=== PATIENT | female | born 1940 | race Caucasian/White ===

== ENCOUNTER → 2020-06-29 13:30 | Outpatient (CLI) | payer MEDICARE, SELFPAY ==
--- NOTE | ~2020-06-29 | XR_ITS ---
XR hand RT min 3V DATE: 06/29/2020 14:50 INDICATION: Injury. Pain and swelling. TECHNIQUE: 3 views COMPARISON: None FINDINGS: Polyarticular osteoarthritis, involving the first carpometacarpal and first metacarpophalan geal and multiple interphalangeal joints in particular. There is evidence of a linear fracture of the dorsal aspect of the triquetrum bone. No other fracture or dislocation, periosteal reaction or bone destruction is detected. IMPRESSION: Triquetral fracture. Polyarticular osteoarthritis Reviewed, dictated and finalized at location A. OR DESIGNER
--- NOTE | ~2020-06-29 | XR_ITS ---
XR facial bones min 3V DATE: 06/29/2020 14:50 INDICATION: Injury. Facial pain and swelling. TECHNIQUE: bhavin Barlow, lateral and submental vertical views COMPARISON: None FINDINGS: The frontozygomatic sutures and zygomatic arches appear intact. No facial fracture is evide nt. The paranasal sinuses and mastoid air cells appear normally developed and aerated. The nasal bone s and anterior maxillary spine appear intact. No mandibular fracture or dislocation is detected. IMPRESSION: No facial fracture detected Reviewed, dictated and finalized at location A. ONARY NURSE PRACTITIONER IMPRESSION: No facial fracture detected
--- NOTE | ~2020-06-29 | XR_ITS ---
XR wrist RT min 3V DATE: 06/29/2020 14:50 INDICATION: Injury. Pain and swelling. TECHNIQUE: 4 views COMPARISON: None FINDINGS: Diffuse osteopenia. A mildly dorsally displaced fracture of the dorsal aspect of the triquetrum is noted. No other fracture or dislocation. Prominent osteoarthritic change at the first carpometacarpal joint and to a lesser extent first metac arpophalangeal joint. IMPRESSION: Dorsal triquetral fracture Reviewed, dictated and finalized at location A. DE STEWARD/STEWARDESS IMPRESSION: Dorsal triquetral fracture
== END ==
PROVIDERS: PCP Family Medicine; Visit Provider Family Medicine
DX: S62.111A Displaced fracture of triquetrum [cuneiform] bone, right wrist, initial encounter for closed fracture (principal); M19.041 Primary osteoarthritis, right hand
CPT/HCPCS: 70150; 73110; 73130

== ENCOUNTER 2023-10-15 20:17 | Emergency (ER) | payer MEDICARE, SELFPAY ==
[2023-10-15 20:35] VITALS: BP 140/57; PULSE 91; RESP 15; TEMP 36.3; O2SAT 96
--- NOTE | 2023-10-15 22:10 | ED.SKABFB ---
HPI - Skin/Abscess/Foreign Bdy General Chief complaint: Skin/Abscess/Foreign Body <HORACIO Solares Last Filed: 10/15/23 22:13> Stated complaint: full body rash <HORACIO Solares Last Filed: 10/15/23 22:13> Time Seen by Provider: 10/15/23 21:26 <HORACIO Solares Last Filed: 10/15/23 22:13> History of Present Illness HPI narrative: 83-year-old female presents to emergency department for concerns reports an IV to her face, neck and arms. Patient states rash developed 3-4 days ago after she was raking leaves in her yard. Reports a history of poison saundra and states her symptoms feel the same. States it is very itchy and she has been trying topical hydrocortisone cream and Benadryl without improvement. She denies fever. <HORACIO Solares Last Filed: 10/15/23 22:13> Related Data Home medications: Home Medications Medication Instructions Recorded Confirmed simvastatin 40 mg tablet 40 mg PO DAILY 11/23/22 08/31/23 <HORACIO Solares Last Filed: 10/15/23 22:13> Allergies/Adverse reactions: Allergies Allergy/AdvReac Type Severity Reaction Status Date / Time Sulfa (Sulfonamide Allergy Mild Rash Verified 10/15/23 21:25 Antibiotics) <HORACIO Solares Last Filed: 10/15/23 22:13> Review of Systems Review of Systems: CONSTITUTIONAL: Denies fever, chills, or sweats. EYES: Denies visual changes, redness, or discharge. ENT: Denies rhinorrhea, congestion, sore throat, or otalgia. CARDIOVASCULAR: Denies chest pain, palpitations, or edema. RESPIRATORY: Denies cough or dyspnea. GASTROINTESTINAL: Denies abdominal pain, nausea, vomiting, or diarrhea. GENITOURINARY: Denies dysuria or hematuria. SKIN: See HPI MUSCULOSKELETAL: Denies back pain, joint pain, or myalgia. NEUROLOGIC: Denies headache, numbness, or weakness. PSYCHIATRIC: Denies anxiety or depression. <HORACIO Solares Last Filed: 10/15/23 22:13> [facility] Past Medical History Medical History: Medical History Essential (primary) hypertension High blood pressure Microalbuminuria Paroxysmal atrial fibrillation Type 2 diabetes mellitus with other diabetic kidney complication <Lianne Butcher PA-C - Last Filed: 10/15/23 22:13> Social History Social History: Social History Smoking status: Never smoker Alcohol intake: never Substance use: never Substance use type: does not use Do You Feel Safe in your Home?: Yes Lack of Transportation: No Lack of Food: Never True Current Housing: I Have Housing Concerned About Future Housing: No Difficulty Paying Gas/Electric Bills: No Difficulty Paying for Meds: No Currently Unemployed: YES Education: High School Diploma/GED Difficulty w/ Childcare or Family Care: No Living arrangements: alone Occupation/Education: retired Gender identity (if verbalized by the patient): Female Sexual Orientation (if Verbalized by the Patient): Straight or Heterosexual <Lianne Butcher PA-C - Last Filed: 10/15/23 22:13> Exam Narrative: GENERAL: Well-appearing, well-nourished, and in no acute distress. HEAD: Normocephalic, atraumatic. EYES: PERRLA and EOMI. ENT: Nares clear, no rhinorrhea or epistaxis. Mucous membranes moist. NECK: Supple. CHEST: Clear to auscultation. No respiratory distress. HEART: Regular rate and rhythm. No murmur heard. Normal peripheral pulses. EXTREMITIES: Normal range of motion. No edema. SKIN: Erythematous plaques to the right cheek, right eyelid, right submandibular region and bilateral volar aspect of the forearms. Pruritic. No evidence of secondary infection. No drainage. Negative Nikolsky is. NEURO: No focal deficits. Alert and oriented x3 <Lianne Butcher PA-C - Last Filed: 10/15/23 22:13> Course LABOR TRAINING MANAGER/PA Physician Supervision I agree with
[2023-10-15] MEDS: TRIAMCINOLONE ACET INJ 40 MG/ML VIAL 55 MG IM (22:40)
== END 2023-10-15 22:43 | disposition home or self-care (01) ==
PROVIDERS: Emergency Provider Physician Assistant; PCP Family Medicine
DX: L23.7 Allergic contact dermatitis due to plants, except food (principal); I10 Essential (primary) hypertension; I48.0 Paroxysmal atrial fibrillation; E11.29 Type 2 diabetes mellitus with other diabetic kidney complication; Z79.84 Long term (current) use of oral hypoglycemic drugs
CPT/HCPCS: 96372; 99283; J3301

== ENCOUNTER 2024-11-26 14:30 | Outpatient (RCR) | payer MEDICARE, SELFPAY | END 2025-01-19 11:01 | disposition home or self-care (01) | LOC: ANHDMC 14:30 | PROVIDERS: PCP Family Medicine; Visit Provider Family Medicine | DX: E11.29 Type 2 diabetes mellitus with other diabetic kidney complication (principal); E11.65 Type 2 diabetes mellitus with hyperglycemia; Z71.89 Other specified counseling | CPT/HCPCS: G0108; G0109 ==

== ENCOUNTER 2025-02-01 22:12 | Observation (INO) | payer MEDICARE, SELFPAY ==
--- NOTE | ~2025-02-01 | CT_ITS ---
Clinical Indication: Abnormal chest x-ray, dizziness CT Scan of the Chest with Contrast: Technique: Contiguous sections were acquired throughout the chest after intravenous administration of 75 cc of Omnipaque 350. Dose reduction technique was used on this scan by utilizing automated exposu re control and iterative reconstruction technique. The dose-length product (DLP) was 132.64 mGy-cm. Findings: There is no evidence of any significant mediastinal, hilar or axillary lymphadenopathy. There is no f illing defect in the pulmonary arterial tree to suggest pulmonary embolus. There is no evidence of ao rtic dissection or aneurysm. There is no evidence of pleural or pericardial effusion. There is a 2.7 x 2.3 cm nodule in the anteromedial right upper lobe with some central calcifications. There is an 8 mm vague groundglass opacity peripheral in the left upper lobe (axial image 52). Images through the upper abdomen reveal no abnormalities. Impression: 2.7 x 2.3 cm right upper lobe pulmonary nodule with central calcifications, suggestive of hamartoma. Other etiologies are not definitively excluded. Follow-up exam in 3 months recommended to reassess. P ET/CT or tissue sampling could also be considered as indicated. 8 mm vague groundglass opacity left upper lobe. Annual follow-up exam advised. Reviewed, dictated and finalized at location M. Impression: 2.7 x 2.3 cm right upper lobe pulmonary nodule with central calcifications, sug gestive of hamartoma. Other etiologies are not definitively excluded. Follow-up exam in 3 months recommended to reassess. PET/CT or tissue sampling could also be considered as indicated. 8 mm vague groundglass opacity left upper lobe. Annual follow-up exam advised.
--- NOTE | ~2025-02-01 | MR_ITS ---
EXAMINATION: MR brain/brain stem wo/w con DATE: 02/02/2025 13:35 INDICATION: Dizziness TECHNIQUE: Magnetic resonance imaging (MRI) of the brain and brainstem was performed without and with 15 mL Multihance intravenous contrast. Sequences included sagittal and axial T1-weighted SE, axial d iffusion-weighted FS SE, axial 3D SWAN, axial T2-weighted FLAIR, and axial T2-weighted FSE. Postcontr ast axial and coronal T1-weighted FSE was obtained. Apparent diffusion coefficient (ADC) maps were cr eated. COMPARISON: Head CT dated 02/02/2025 FINDINGS: There are no areas of restricted diffusion to suggest acute infarction. No intracranial hemorrhage or abnormal intracranial mass lesion. There are scattered areas of nonspecific increased T2-weighted si gnal intensity in the cerebral white matter, predominantly involving the deep and periventricular whi te matter. Caput medusa pattern of enhancement and low signal intensity susceptibility weighted artif act consistent with developmental venous anomaly at the right cerebellar hemispheres draining to the fourth ventricle. There are no intraparenchymal signal abnormalities seen on the other pulse sequence s. The ventricles are symmetric and normal in size. There are no abnormal extra-axial fluid collectio ns. Flow voids are seen in the cerebral arteries on the T2-weighted sequences consistent with their e xpected patency. Mild mucosal thickening at the bilateral ethmoid sinuses. Visualized orbits and soft tissues are unremarkable. There are no other areas of abnormal enhancement on the post contrast imag es. IMPRESSION: 1. No acute intracranial process. 2. Mild scattered mesenteric white matter T2 hyperintensity which within normal limits for age and co nsistent with chronic small vessel ischemic disease. 3. 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 Reviewed, dictated and finalized at location A. IMPRESSION: 1. No acute intracranial process. 2. Mild scattered mesenteric white matter T2 hyperintensity which within normal limits for age and consistent with chronic small vessel ischemic disease. 3. 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
--- NOTE | ~2025-02-01 | XR_ITS ---
XR chest 1V portable 02/02/2025 01:13 Indication: Stroke workup Procedure: AP portable chest Comparison: No prior studies for comparison. Findings: Heart size normal. There are bilateral interstitial infiltrates of the upper lobes. No pleu ral effusion or pneumothorax. Heart size normal. There is a right paramediastinal mass, suspicious fo r echogenic carcinoma. Correlation with CT chest recommended. Impression: 1: Bilateral interstitial infiltrates of the upper lobes, suspicious for edema versus atypical pneumo chelsea. 2: Right paramediastinal mass, suspicious for malignancy. Correlation with CT chest with contrast re commended. Reviewed, dictated and finalized at location A. Impression: 1: Bilateral interstitial infiltrates of the upper lobes, suspicious for edema versus atypical pneumonia. 2: Right paramediastinal mass, suspicious for malignancy. Correlation with CT chest with contrast recommended.
--- NOTE | ~2025-02-01 | CT_ITS ---
CT ANGIOGRAM NECK AND HEAD History: Vertigo. Technique: Axial noncontrast imaging of the brain was performed. Serial spiral axial images through t he head and neck were then obtained during arterial phase IV injection of 100 cc of Omnipaque 350. 3- D postprocessing and MIP images were then reconstructed on the remote workstation. Dose reduction carter hnique was used on this scan by utilizing automated exposure control and iterative reconstruction carter hnique. The dose-length product (DLP) was 1591.92 mGy-cm. CTA neck findings: Bilateral vertebral arteries are patent. Bilateral common carotid, internal carot id, and external carotid arteries are patent. There is 40% stenosis at the proximal right internal ca rotid artery related to calcified plaque. No significant stenosis of the left internal carotid artery despite calcified plaques present. The proximal right internal carotid artery demonstrates 40% steno sis relative to the normal distal artery lumen diameter. The proximal left internal carotid artery de monstrates 0% stenosis relative to the normal distal artery lumen diameter. CTA head findings: Distal vertebral arteries, basilar artery, and posterior cerebral arteries are pat ent. Distal internal carotid arteries, middle cerebral arteries, and anterior cerebral arteries are p atent. No significant stenosis. No large vessel occlusion. No aneurysm evident. Axial noncontrast images of brain demonstrates no evidence for acute infarct, intracranial hemorrhage , or mass lesion. No mass effect or midline shift. Tierney-white differentiation intact. Ventricles and subarachnoid spaces are minimally prominent. Paranasal sinuses and mastoid air cells are clear. Lin rium intact. Impression: 40% stenosis at the proximal right internal carotid artery. Reviewed, dictated and finalized at location . Impression: 40% stenosis at the proximal right internal carotid artery.
--- NOTE | 2025-02-01 22:17 | ECG_ITS ---
Test Date: 2025-02-01 22:20:17 Measurements Intervals Irwin Rate: 76 P: 0 IA: 0 QRS: -60 QRSD: 98 T: 14 QT: 372 QTc: 418 Interpretive Statements ATRIAL FIBRILLATION LEFT AXIS DEVIATION [QRS AXIS < -30] INCOMPLETE RIGHT BUNDLE BRANCH BLOCK CANNOT R/O SEPTAL INFARCT, AGE INDETERMINATE INFERIOR INFARCT, AGE INDETERMINATE ABNORMAL ECG No previous ECG available for comparison Electronically Signed On 02-02-2025 06:24:36 CDT by Jose Mitchell D.O.
[2025-02-01 22:18] VITALS: PULSE 76; RESP 11; TEMP 36.9; O2SAT 100
[2025-02-01 22:38] LABS: Hematocrit 46.0 % (37.0-47.0); Hemoglobin 15.6 g/dL (12.0-15.0); Immature Granulocyte Percent A 0.3 % (0-0.5); Lymphocytes Absolute Auto 1.06 K/mm3 (0.9-3.2); Mean Corpuscular HGB Conc 33.9 g/dl (32-36); Mean Corpuscular Hemoglobin 31.3 pg (26-34); Mean Corpuscular Volume 92.2 fl (80-100); Nucleated Red Blood Cells Absolute Auto 0.000 K/mm3 (0.0-0.012); Nucleated Red Blood Cells Perc 0.0 % (0.0-0.2); Platelet Count Result 155 k/mm3 (150-375); Red Blood Count 4.99 M/mm3 (4.2-5.4); White Blood Count 7.4 K/mm3 (4.5-10.0)
[2025-02-01 22:45] VITALS: BP 176/92
[2025-02-01 22:52] VITALS: BP 182/103; PULSE 79
[2025-02-01 22:55] VITALS: BP 191/97
[2025-02-01 23:28] LABS: Add Urine Microscopic? NO; Appearance Urine Clear (Clear); Glucose Urine UA 3+ mg/dL (Negative); Leukocyte Esterase Ur Negative LEU/UL (Negative); Nitrate Urine Negative (Negative); Specific Grav Ur 1.019 (1.001-1.035)
--- NOTE | 2025-02-01 23:30 | PC.NURSE ---
Assumed care of patient. Pt here with dizziness that started this evening shortly after she returned home from dinner. States she was out at a [place] watching boats all day, felt totally normal, did a lot of walking. Then went to a [employer] restaurant for dinner. Reports she is probably dehydrated because she wasn't drinking any water all day. Pt states the dizziness is worse when she moves around or turns her head. Describes as spinning sensation that makes her feel off balanced. Pt A&Ox4 with clear speech, MAEW, equal strength bilaterally. Pt denies any specific visual changes. Denies any headache. Waiting lab results. Family at bedside, call light in reach.
[2025-02-01 23:51] VITALS: PULSE 82; RESP 12; O2SAT 95
--- OUTSIDE RECORDS SUMMARY | 2025-02-01 23:54 | XMS_ITS | Patient Health Record ---
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
--- OUTSIDE RECORDS SUMMARY | 2025-02-01 23:54 | XMS_ITS | Patient Health Record ---
Author Organization [facility] Address [address] [place], [place] [address] Care Team Providers Care Board Worker Name Role Phone ASHLEE MARTINEZ Unavailable [phone] Ashlee Tucker Unavailable Unavailable ASHLEE TIRADO Unavailable [phone] Allergies Allergen (clinical drug ingredient) Drug/Non Drug Allergy documented on EMR Reaction Allergy Type Onset Date Status Product containing sulfonamide (product) (uncoded) Unknown Allergy 12/03/2020 active Latex Latex Unknown Allergy 12/03/2020 active Reason For Referral No Information Medications Medication SIG (Take, Route, Frequency, Duration) Notes Start Date End Date Status Clotrimazole-Betamet hasone 1-0.05 % 1 application Externally Twice a day one 30g tube or similar 01/07/2024 Active Clotrimazole-Betamet hasone 1-0.05 % 1 application Externally Twice a day; Duration: 30 days one tube, 30g or similar Active Vital Signs Height-cm 157.48 cm 10/23/2024 Weight-kg 57.61 kg 10/23/2024 Height 62.00 in 10/23/2024 Weight 127 lbs 10/23/2024 BMI 23.23 kg/m2 10/23/2024 Encounters Encounter Location Date Provider Diagnosis [facility] [address] [place], [place] [id number] 10/16/2024 ASHLEE TIRADO Contusion of right great toe without damage to nail, initial encounter S90.111A and Pain in right toe(s) M79.674 [facility] [address] [place], [place] [id number] 10/23/2024 ASHLEE TIRADO Pain in right toe(s) M79.674 and Contusion of right great toe without damage to nail, subsequent encounter S90.111D Assessments Encounter Date Diagnosis (ICD Code) Assessment Notes Treatment Notes Treatment Clinical Notes Section Notes 10/16/2024 Pain in right toe(s) (ICD-10 - M79.674) 10/16/2024 Contusion of right great toe without damage to nail, initial encounter (ICD-10 - S90.111A) 10/23/2024 Pain in right toe(s) (ICD-10 - M79.674) 10/23/2024 Contusion of right great toe without damage to nail, subsequent encounter (ICD-10 - S90.111D) 10/23/2024 Other I advised the patient that no further treatment is necessary at this time. If the condition should worsen they should call the office. Plan Of Treatment No Information Insurance Providers Payer Name Payer Address Payer Phone Subscriber Number Group Number Insured Name Patient Relationship to Insured Coverage Start Date Coverage End Date [facility] [address] [address] [place] [id number] LEWIS SAMUELS Self - patient is the insured
--- OUTSIDE RECORDS SUMMARY | 2025-02-01 23:54 | XMS_ITS | Clinical Summary ---
Author Organization [facility] Address [address] [place] [address] Care Team Providers Care Pail Bailer Name Role Phone Unavailable Primary Care Provider Unavailabl e Social History Tobacco Use Types Packs/Day Years Used Date Smoking Tobacco: Never Assessed Comments Unknown Sex and Gender Information Value Date Recorded Sex Assigned at Not on file Legal Sex Female 6:35 PM CDT Gender Identity Not on file Sexual Orientation Not on file Plan of Treatment Health Maintenance Due Date Last Done Comments DTaP, Tdap and Td Vaccines ( 1 - Tdap) 1959 Pneumococcal Vaccine: 50+ Ye ars (1 of 1 - PCV) 1990 Zoster Vaccines (1 of 2) 1990 Dexa Scan (General) 2005 RSV Immunization or 60+ Years (1 - 1-dose 75+ series) 2015 COVID-19 Vaccine (2023-2 5 season) 2024 Meningococcal B Vaccine Aged Out No l onger eligible based on patient's age to complete this topic Meningococcal Vaccine Aged Out No bre an eligible based on patient's age to complete this topic RSV Immunizations Under 20 Months Aged Out No longer eligible based on patient's age to complete this topic
[2025-02-02] VITALS (44 sets, daily range): BP systolic 109–175; BP diastolic 62–94; PULSE 68–105; RESP 12–20; TEMP 36.2–36.6; O2SAT 91–100; BMI 20.5
--- NOTE | 2025-02-02 00:14 | ED_ITS ---
HPI - Dizziness General Chief Complaint: Dizziness Stated Complaint: DIZZY/NAUSEATED Time Seen by Provider: 02/01/25 23:46 Source: patient and family Limitations: no limitations History of Present Illness HPI Narrative: Patient presents with report dizziness of 4 hours duration. It is initially unclear as it seems that it had been acute onset but then she states that she had not been feeling well for a little bit leading up to this. Earlier today she was outside today at the [place] with dogs and feeling fine. She thinks perhaps she did not drink enough fluids although she did have dinner, last oral intake. When she started to feel dizzy and nauseated at home she laid on the floor and called her son who then called EMS. She states she has a history of motion sickness. Denies any history of TIA or CVA. Has a history of hypertension for which she is on lisinopril but she did not take this today. When asked to describe her dizziness she denies any rotational movement or spinning or sensation of falling. Believes that symptoms may have been preceded by head position change but denies any position change of her body preceding and although this is possible. She reports feeling lightheaded and that her gait might of been abnormal. Denies any blurred vision or diplopia. She denies any slurred speech although her son states that he thought she had some. She does not know she had issues with her equilibrium. She does not know if this has ever happened before. Unclear if any unilateral symptoms although she cannot describe any. Denies any ear pain, tinnitus, or hearing changes. Reports that she has a history of diabetes mellitus and is on Farxiga. Also reports being on nystalamir (?). She had previously been on statin but this was discontinued. She reports that she has had a colonoscopy and is due for 1 but has not scheduled it. Her primary care physician is Dr. Tucker. History of atrial fibrillation. Blood glucose was 146 for EMS heart rate was 86. Patient initially denies being on any anticoagulation but then which she lists her medications she does state she is on Eliquis and also takes 81 mg aspirin. Blood pressure for EMS was 211/102. Related Data Allergies Allergy/AdvReac Type Severity Reaction Status Date / Time Sulfa (Sulfonamide Allergy Mild Rash Verified 12/09/24 10:35 Antibiotics) [facility] [place] Past Medical History Medical History (Updated 02/02/25 @ 11:47 by Aminah Garcia MD) Hyperlipidemia Vertigo Chronic anticoagulation Paroxysmal atrial fibrillation Essential (primary) hypertension Microalbuminuria Type 2 diabetes mellitus with other diabetic kidney complication High blood pressure Social History Social History Smoking status: Never smoker Alcohol intake: never Substance use: never Substance use type: does not use Do You Feel Safe in your Home?: Yes Lack of Transportation: No Lack of Food: Never True Current Housing: I Have Housing Concerned About Future Housing: No Difficulty Paying Gas/Electric Bills: No Difficulty Paying for Meds: No Currently Unemployed: No Education: High School Diploma/GED Difficulty w/ Childcare or Family Care: No Living arrangements: alone Occupation/Education: retired Gender identity (if verbalized by the patient): Female Sexual Orientation (if Verbalized by the Patient): Straight or Heterosexual Spiritual care concerns: No Exam 2 Narrative: GENERAL: Well-appearing, well-nourished, and in no acute distress. HEAD: Normocephalic, atraumatic. EYES: Non injected, non icteric. No nystagmus.. ENT: Nares clear, no rhinorrhea or epistaxis. Gross auditory acuity intact. Bilateral tympanic membranes are easily visualized without significant cerumen. No bulging effusion, erythema, vesicles. NECK: Supple. No meningismus. CHEST: Speaking in full sentences. No respiratory distress. HEART: IRRegularly irregular rate and rhythm. . ABDOMEN: Soft, nondistended. No rigidity or guarding. Not peritoneal EXTREMITIES: Normal range of motion. No lower extremity edema. SKIN: Warm, dry, no rash. NEURO: No focal deficits. Alert and oriented. Answering questions. Following commands. Normal speech without aphasia or dysarthria. No ataxia on [id number]. No facial asymmetry/gaze palsy. PSYCH: Congruent mood and affect. Loquacious. Course Vital Signs Vital signs: Vital Signs Temperature 98.5 F 02/01/25 22:18 Pulse Rate 76 02/01/25 22:18 Respiratory Rate 11 L 02/01/25 22:18 Pulse Oximetry 100 02/01/25 22:18 Oxygen Delivery Room Air 02/01/25 22:18 Temperature 97.1 F L 02/02/25 13:56 Pulse Rate 81 02/02/25 16:00 Respiratory Rate 18 02/02/25 13:56 Blood Pressure 162/79 H 02/02/25 13:56 Pulse Oximetry 94 02/02/25 14:56 Oxygen Delivery Room Air 02/02/25 14:56 MDM - Dizziness MDM Narrative Medical decision making narrative: Patient presents with report of dizziness and nausea 4 hours duration. Exact details and symptomatology her difficult for patient to describe an elaborate on. Unclear if any preceding head position changes or body position changes. She describes a sense of lightheadedness but other than that does not have sensation falling or rotational movement/spinning. In the emergency department she is afebrile with vital signs notable for mild bradypnea but she is also hypertensive. NIHSS Level Of consciousness: 0 Month and age:0 Follows commands:0 Gaze palsy:0 Visual sims: not assessed Facial palsy:0 Left arm motor drift:0 Right arm motor drift:0 Left leg motor drift:0 Right leg motor drift:0 Limb ataxia:0 Sensation:0 Aphasia:0 Dysarthria:0 Extinction: not assessed Total: 0 Mildly elevated hemoglobin. No prior for comparison. Suspect possible degree of hemoconcentration. Hyperglycemia without an anion gap or acidosis. Although symptoms do not sound distinctly vertiginous considered the following differential: Central causes: infection ( encephalitis, meningitis, cerebritis); vertebrobasilar arterial insufficiency, subclavian steal syndrome, cerebellar or brainstem hemorrhage or infarction, vertebrobasilar migraine, trauma ( temporal bone fracture, post concussive syndrome); tumor (brainstem or cerebellum); MS; temporal lobe epilepsy Peripheral causes: Foreign body, cerumen impaction, acute otitis media, labyrinthitis, benign paroxysmal positional vertigo, Meniere's disease, vestibular neuronitis, perilymphatic fistula, trauma, motion sickness, acoustic neuroma, ototoxic medications Meclizine given as first line agent. Mild hypokalemia. Oral repletion ordered. Lipase mildly elevated but not to a degree to suggest pancreatitis and patient is otherwise not complaining abdominal pain that would suggest pancreatitis. Urinalysis with glucosuria but not evidence of infection. Orthostatic blood pressures rise, not fall with position changes. Still dizzy and nauseated; Valium ordered as second line agent. Troponin normal. Patient is reassessed at approximately 2:30 a.m.. She is sleeping, resting comfortably, protecting her airway. Still pending CT results. Family updated at bedside. Patient had been reassessed after CT imaging resulted. The lights were turned on in the room and I did try awaken patient. She arouses but remains quite somnolent; when asked how her dizziness is, she states, better, but unclear, keeps eyes closed the entire time. After some time, RN did attempt to assess gait. She did ok although was a little unsteady. Upon return to bed though, she became very dizzy again. Small dose Promethazine ordered to suppress vestibular end-organ receptors and inhibit activation of vagal response. On reassessment she states that her dizziness is improved although not completely resolved. Given this will admit for further workup. Based on the chest x-ray findings, CT chest also ordered. She reports having a very mild headache. For this reason small dose of headache cocktail is ordered as well. Patient will require admission for further workup and management, recommending she received an MRI for further evaluation. She is informed of this at bedside. Discussed with on-call hospitalist who accepts admission. Based on CXR interpretation by radiology, I did also order chest CT for further investigation. Differential Diagnosis Differential diagnosis: Likely adverse reaction to drug, benign paroxysmal positional vertigo, orthostatic hypotension, vertebral basilar insufficiency, cerebrovascular accident, acute vestibular neuronitis and transient cerebral ischemia Lab Data Attestation: I reviewed the patient's lab results. 02/01/25 22:31 02/01/25 23:48 Labs: Lab Results 02/01/25 02/01/25 02/01/25 Range/Units 22:31 23:11 23:48 WBC 7.4 (4.5-10.0) K/mm3 RBC 4.99 (4.2-5.4) M/mm3 Hgb 15.6 H (12.0-15.0) g/dL Hct 46.0 (37.0-47.0) % MCV 92.2 (80-100) fl MCH 31.3 (26-34) pg MCHC 33.9 (32-36) g/dl RDW 12.3 (11.5-14.5) % Plt Count 155 (150-375) k/mm3 MPV 11.5 H (7.4-10.4) fl Immature Gran % (Auto) 0.3 (0-0.5) % Neut % (Auto) 77.3 H (45.5-73.1) % Lymph % (Auto) 14.4 L (18.3-44.2) % [place] % (Auto) 5.8 (2.6-8.5) % Eos % (Auto) 1.5 (0-4.4) % Baso % (Auto) 0.7 (0.2-1.2) % Lymph # (Auto) 1.06 (0.9-3.2) K/mm3 [place] # (Auto) 0.4 (0.1-0.6) K/mm3 Eos # (Auto) 0.1 (0-0.3) K/mm3 Baso # (Auto) 0.1 (0.0-0.1) K/mm3 Abs Immat Gran (auto) 0.02 (0.00-0.031) K/mm3 Absolute Neuts (auto) 5.7 (1.3-6.7) K/mm3 Absolute Nucleated RBC 0.000 (0.0-0.012) K/mm3 Nucleated RBC % 0.0 (0.0-0.2) % Sodium 134 L (137-145) mmol/L Potassium 3.3 L (3.4-5.0) mmol/L Chloride 96 L (98-107) mmol/L Carbon Dioxide 31 H (22-30) mmol/L Anion Gap 7 (4-12) mmol/L BUN 23 H (7-17) mg/dL Creatinine 0.90 (0.7-1.0) mg/dL Estim Creat Clear Calc Not Reportable Estimated GFR 60 (59 - ) Glucose 193 H (65-110) mg/dL Calcium 10.0 (8.4-10.2) mg/dL Total Bilirubin 0.7 (0.2-1.3) mg/dL AST 35 (14-36) U/L ALT 30 (6-35) U/L Alkaline Phosphatase 66 (38-126) U/L Troponin I < 0.012 (0.000-0.034) ng/mL Total Protein 7.1 (6.3-8.2) g/dL Albumin 4.5 (3.5-5.1) g/dL Lipase 587 H (23-300) U/L Urine Color Yellow (Yellow) Urine Appearance Clear (Clear) Urine pH 7.0 (5.0-9.0) Ur Specific [place] 1.019 (1.001-1.035) Urine Protein Negative (Negative) mg/dL Urine Glucose (UA) 3+ H (Negative) mg/dL Urine Ketones Trace H (Negative) mg/dL Ur Blood (Man) Negative (Negative) Urine Nitrate Negative (Negative) Urine Bilirubin Negative (Negative) Urine Urobilinogen 0.2 (<2.0) mg/dL Leukocyte Esterase Rfl Negative (Negative) DIGNA/UL Imaging Data Attestation: I personally reviewed and interpreted this imaging study as follows: My impression: No acute intrathoracic process on my independent interpretation chest x-ray although the haziness that seems to appear somewhat uniformly is absent in the right lower lobe, significance unclear Radiologist's impression: CT Head Stat Rad: No evidence of acute intracranial pathology. No comparisons CTA head stat Rad: Negative CT angiogram of the head. The dural venous sinuses are patent. No comparisons. No incidental findings CTA neck stat rad: There is a 70% stenosis of the proximal right ICA. No comparisons. Incidental findings: Tiny rim calcified right thyroid nodule. Tiny left thyroid nodules. Impression: 1: Bilateral interstitial infiltrates of the upper lobes, suspicious for edema versus atypical pneumonia. 2: Right paramediastinal mass, suspicious for malignancy. Correlation with CT chest with contrast recommended. Impression: 40% stenosis at the proximal right internal carotid artery. Impression: 2.7 x 2.3 cm right upper lobe pulmonary nodule with central calcifications, suggestive of hamartoma. Other etiologies are not definitively excluded. Follow- up exam in 3 months recommended to reassess. PET/CT or tissue sampling could also be considered as indicated. 8 mm vague groundglass opacity left upper lobe. Annual follow-up exam advised. ECG Data EKG #1: Attestation: I personally reviewed and interpreted this ECG as follows: ECG completion date: 02/01/25 ECG completion time: 22:20 Interpretation: Rate controlled atrial fibrillation at 76 beats per minute. QRS 98. QT/QTC 372/418. Left axis deviation (QRS is positive with dominant R wave in Lead I; QRS is negative with dominant S wave in leads II, III, and aVF). Incomplete RBBB given QRS less [id number]; RSR' M-shaped pattern in V1-V3; wide, slurred S wave in lateral leads (I, aVL, less so in V5-6) Discharge Plan Discharge Clinical Impression: Dizziness, Hyperglycemia due to diabetes mellitus, Hypokalemia, Glucosuria, Thyroid nodule, Rate controlled atrial fibrillation, Right upper lobe pulmonary nodule, Ground glass opacity present on imaging of lung Patient Disposition: Still a Patient Condition: Stable Time of Disposition: 06:47
[2025-02-02 00:17] LABS: Alanine Aminotransferase 30 U/L (6-35); Albumin Level 4.5 g/dL (3.5-5.1); Alkaline Phosphatase 66 U/L (38-126); Anion Gap 7 mmol/L (4-12); Aspartate Amino Transferase 35 U/L (14-36); Bilirubin,Total 0.7 mg/dL (0.2-1.3); Blood Urea Nitrogen 23 mg/dL (7-17); Calcium 10.0 mg/dL (8.4-10.2); Carbon Dioxide 31 mmol/L (22-30); Chloride 96 mmol/L (98-107); Estimated Glomerular Filt Rate 60; Glucose 193 mg/dL (65-110); Lipase 587 U/L (23-300); Potassium 3.3 mmol/L (3.4-5.0); Sodium 134 mmol/L (137-145); Total Protein 7.1 g/dL (6.3-8.2)
[2025-02-02] MEDS: MECLIZINE HCL 25 MG TABLET PO (00:58)
[2025-02-02] MEDS: ONDANSETRON INJ 4 MG/2 ML VIAL IV PUSH (01:23)
[2025-02-02 01:41] LABS: Troponin I < 0.012 ng/mL (0.000-0.034)
[2025-02-02] MEDS: diazePAM INJ (*CRX) 10 MG/2 ML SYRINGE 2.5 MG IV PUSH (01:57)
--- NOTE | 2025-02-02 05:09 | PC.NURSE ---
Pt ambulated to with RN assistance x 1. Pt stated that she still felt woozy and pt had multiple episodes where she stumbled to the side. Pt reports that she is feeling much better but not her normal. When pt returned to her room and got back on the stretcher, pt stated that movement worsened the dizziness again. Pt denies any nausea, reports her head feels funny. MD Burden updated.
[2025-02-02] MEDS: PROMETHAZINE HCL 25 MG/ML AMPUL 6.25 MG IV PUSH (06:00)
[2025-02-02] MEDS: SODIUM CHLORIDE 0.9% IV 50 ML 200 ML (06:00)
[2025-02-02] MEDS: POTASSIUM BICARBONATE 25 MEQ TABEF PO (06:01)
[2025-02-02] MEDS: SODIUM CHLORIDE 0.9% IV 1,000 ML 999 ML IV CONT (06:41)
[2025-02-02] MEDS: PROCHLORPERAZINE EDISYLATE 10 MG/2 ML VIAL 2.5 MG IV PUSH (06:42)
[2025-02-02] MEDS: KETOROLAC 15 MG/ML VIAL (*BKC) IV PUSH (06:42)
--- NOTE | 2025-02-02 08:00 | ADMGEN ---
This patient, Eden Mccray, was admitted to [facility] Surg Room 321-02. Patient/family oriented to hospital policies and general routines including ID bracelet, bed and alarms, visiting hours, pain management, procedures, bathroom and other care routines, personal items, smoking policy, room service/diet, and visiting hours. Information on how to activate the Rapid Response Team has been discussed. Patient/Family are encouraged to report perceived risks to care and to ask questions if they do not understand what they are told or what they should do.
--- NOTE | 2025-02-02 11:37 | P.CONNEU_ITS ---
Assessment and Plan Assessment and plan (1) Vertigo: Code(s): R42 - Dizziness and giddiness Status: Acute Assessment and Plan: The patient's symptoms have improved. They were brought on by movement of the head in relation to the body suggestive of benign paroxysmal vertigo however differential diagnosis would include possibility of brainstem stroke particularly history of diabetes mellitus. She also has history of atrial fibrillation and is on anticoagulation. MRI of the brain is recommended and will be followed up with the results. Clinically I did not find any significant focal deficit at this time. I noted that in August her LDL was high at 150.. We should repeat her lipid profile. (2) Essential (primary) hypertension: Code(s): I10 - Essential (primary) hypertension Status: Acute (3) Paroxysmal atrial fibrillation: Code(s): I48.0 - Paroxysmal atrial fibrillation Status: Acute Assessment and Plan: The patient is on chronic anticoagulation with Eliquis. (4) Type 2 diabetes mellitus with other diabetic kidney complication: Code(s): E11.29 - Type 2 diabetes mellitus with other diabetic kidney complication Status: Acute (5) Hyperlipidemia: Code(s): E78.5 - Hyperlipidemia, unspecified Status: Acute Plan The patient is feeling much better now. I shall follow up the results of her investigations. She told me she has been able to go to the bathroom. Family is very supportive her son was here at the time of the evaluation. Consult date: 02/02/25 HPI: Eden Mccray is a 84 year old female with history of diabetes mellitus and atrial fibrillation developed dizziness or sense of rotation around her head around 6:00 p.m. yesterday. She had a normal relaxing day all day. Patient's son was present at the time of the evaluation. The symptoms were severe and she also felt nauseous and had some headache. she describes that movement of the head was Trigger to her symptoms of dizziness. She never had symptoms such as this in the past. She came to the emergency room were she was evaluated. CT scan of brain and CT angiogram of the head and neck were performed which did not show any significant abnormalities although there was a 40% narrowing of the right internal carotid artery. Last LDL on September 29, 2024 was 150. Her lipase was found to be high at 587. She did not have any other symptoms particularly no diplopia or difficulty speech or swallowing or chewing weakness in upper lower limbs. Symptoms lasted for 5-6 hours and then she has improved. She is living by herself and is fairly active and does her own backyard. Review of Systems 2 Review of Systems: All systems reviewed & are unremarkable except as noted in HPI and below PMFSH Past Medical History Medical History (Updated 02/02/25 @ 11:47 by Aminah Garcia MD) Hyperlipidemia Vertigo Chronic anticoagulation Paroxysmal atrial fibrillation Essential (primary) hypertension Microalbuminuria Type 2 diabetes mellitus with other diabetic kidney complication High blood pressure Social History Social History Smoking status: Never smoker Alcohol intake: never Substance use: never Substance use type: does not use Do You Feel Safe in your Home?: Yes Lack of Transportation: No Lack of Food: Never True Current Housing: I Have Housing Concerned About Future Housing: No Difficulty Paying Gas/Electric Bills: No Difficulty Paying for Meds: No Currently Unemployed: No Education: High School Diploma/GED Difficulty w/ Childcare or Family Care: No Living arrangements: alone Occupation/Education: retired Gender identity (if verbalized by the patient): Female Sexual Orientation (if Verbalized by the Patient): Straight or Heterosexual Spiritual care concerns: No Meds Home Medications and Allergies Home Medications ?Medication ?Instructions ?Recorded ?Confirmed ?Type digoxin 125 mcg (0.125 mg) tablet 0.125 mg PO DAILY #90 tabs 09/29/24 12/09/24 Rx lisinopril 20 See Rx Instructions .Route 09/29/24 12/09/24 Rx mg-hydrochlorothiazide 25 mg tablet .COMPLEX #90 tabs mesalamine 1.2 gram tablet,delayed 2.4 g (2 x 1.2 gram) PO DAILY 3 09/29/24 12/09/24 Rx release (Lialda) months #180 tabs metformin 500 mg tablet,extended 500 mg PO DAILY #90 tabs 09/29/24 12/09/24 Rx release 24 hr rosuvastatin 10 mg tablet 10 mg PO DAILY #90 tabs 09/30/24 12/09/24 Rx Eliquis 5 mg tablet (apixaban) 5 mg PO BID #180 tabs 12/09/24 12/09/24 Rx dapagliflozin propanediol 10 mg 10 mg PO DAILY #90 tabs 01/12/25 Rx tablet (Farxiga) Allergies Allergy/AdvReac Type Severity Reaction Status Date / Time Sulfa (Sulfonamide Allergy Mild Rash Verified 12/09/24 10:35 Antibiotics) Vital Signs Vital Signs - 24 hr 02/01/25 22:18 02/01/25 22:45 02/01/25 22:52 Temperature 98.5 F Pulse Rate 76 79 Respiratory Rate 11 L Blood Pressure 176/92 H 182/103 H Pulse Oximetry 100 Oxygen Delivery Room Air 02/01/25 22:55 02/01/25 23:51 02/02/25 00:00 Temperature Pulse Rate 82 77 Respiratory Rate 12 16 Blood Pressure 191/97 H Pulse Oximetry 95 97 Oxygen Delivery 02/02/25 00:15 02/02/25 00:16 02/02/25 00:31 Temperature Pulse Rate 86 79 81 Respiratory Rate 18 14 16 Blood Pressure 174/91 H 175/92 H Pulse Oximetry 94 96 97 Oxygen Delivery 02/02/25 00:32 02/02/25 01:08 02/02/25 01:10 Temperature Pulse Rate 88 86 92 Respiratory Rate 18 18 18 Blood Pressure 156/85 H Pulse Oximetry 98 97 97 Oxygen Delivery 02/02/25 01:15 02/02/25 01:16 02/02/25 01:17 Temperature Pulse Rate 87 87 90 Respiratory Rate 12 14 12 Blood Pressure 167/94 H Pulse Oximetry 91 92 94 Oxygen Delivery 02/02/25 02:04 02/02/25 02:22 02/02/25 02:30 Temperature Pulse Rate 86 84 Respiratory Rate 17 15 15 Blood Pressure Pulse Oximetry 96 97 Oxygen Delivery 02/02/25 02:31 02/02/25 03:08 02/02/25 03:17 Temperature Pulse Rate 82 85 80 Respiratory Rate 15 16 15 Blood Pressure 111/67 Pulse Oximetry 98 100 99 Oxygen Delivery 02/02/25 03:30 02/02/25 03:31 02/02/25 03:45 Temperature Pulse Rate 78 81 80 Respiratory Rate 14 14 14 Blood Pressure 109/68 Pulse Oximetry 100 100 100 Oxygen Delivery 02/02/25 03:46 02/02/25 04:00 02/02/25 04:01 Temperature Pulse Rate 76 88 92 Respiratory Rate 15 16 18 Blood Pressure 120/65 127/76 Pulse Oximetry 100 100 100 Oxygen Delivery 02/02/25 04:15 02/02/25 04:16 02/02/25 04:42 Temperature Pulse Rate 88 85 101 H Respiratory Rate 15 14 16 Blood Pressure 112/62 Pulse Oximetry 99 100 Oxygen Delivery 02/02/25 04:51 02/02/25 05:29 02/02/25 05:38 Temperature Pulse Rate 90 88 90 Respiratory Rate 14 13 19 Blood Pressure Pulse Oximetry 96 95 95 Oxygen Delivery 02/02/25 06:03 02/02/25 06:15 02/02/25 06:16 Temperature Pulse Rate 90 82 97 Respiratory Rate 12 20 18 Blood Pressure 158/78 H Pulse Oximetry 97 95 93 Oxygen Delivery 02/02/25 06:30 02/02/25 06:31 02/02/25 06:45 Temperature Pulse Rate 99 103 H 93 Respiratory Rate 16 16 17 Blood Pressure 154/66 H Pulse Oximetry 96 97 95 Oxygen Delivery 02/02/25 06:46 02/02/25 07:22 02/02/25 07:24 Temperature Pulse Rate 83 83 91 Respiratory Rate 15 18 Blood Pressure 135/69 166/76 H Pulse Oximetry 95 98 96 Oxygen Delivery 02/02/25 07:24 Temperature Pulse Rate 85 Respiratory Rate 14 Blood Pressure 166/76 H Pulse Oximetry 96 Oxygen Delivery Exam 2 Const: General: cooperative, well developed and alert O rientation/consciousness: oriented to person, oriented to place and oriented to time HENMT: Head: atraumatic Mouth: Yes oropharynx normal Eyes: Alignment and Position: position normal Pupils: Equal, round and reactive pupils present EOM: EOMs intact bilaterally Neck: Neck: supple Resp: Effort & Inspection: normal respiratory effort Skin: General skin exam: normal color Neuro: Cranial nerves: Yes CN's II-XII intact bilaterally, Yes Equal, round and reactive pupils present, Yes Bilaterally intact EOM present, Yes Nystagmus not present, Yes facial symmetry, Yes Midline tongue present and Yes Symmetric palate elevation present Cognition (Neuro): normal cognition Speech: n ormal speech Motor exam (neuro): 5/5 motor strength present throughout, Normal motor muscle tone present throughout and Motor abnormalities not present Sensory Exam: normal sensation Coordination: [id number] test normal and Normal rapid alternating movements of the distal upper extremity present (Neuro) Extrem: General: normal to inspection Psych: Mental Status: mental status grossly normal Affect: normal affect Results Labs 02/01/25 22:31 02/01/25 23:48 Labs: Short CBC 02/01/25 Range/Units 22:31 WBC 7.4 (4.5-10.0) K/mm3 Hgb 15.6 H (12.0-15.0) g/dL Hct 46.0 (37.0-47.0) % Plt Count 155 (150-375) k/mm3 BMP 02/01/25 23:48 Sodium 134 L Potassium 3.3 L Chloride 96 L Carbon Dioxide 31 H BUN 23 H Creatinine 0.90 Glucose 193 H Calcium 10.0 Cardiac Enzymes 02/01/25 Range/Units 23:48 Troponin I < 0.012 (0.000-0.034) ng/mL Liver Function 02/01/25 Range/Units 23:48 Total Bilirubin 0.7 (0.2-1.3) mg/dL AST 35 (14-36) U/L ALT 30 (6-35) U/L Alkaline Phosphatase 66 (38-126) U/L Albumin 4.5 (3.5-5.1) g/dL Urine 02/01/25 Range/Units 23:11 Urine Color Yellow (Yellow) Urine Appearance Clear (Clear) Urine pH 7.0 (5.0-9.0) Ur Specific [place] 1.019 (1.001-1.035) Urine Protein Negative (Negative) mg/dL Urine Glucose (UA) 3+ H (Negative) mg/dL CT ANGIOGRAM NECK AND HEAD History: Vertigo. Technique: Axial noncontrast imaging of the brain was performed. Serial spiral axial images through the head and neck were then obtained during arterial phase IV injection of 100 cc of Omnipaque 350. 3-D postprocessing and MIP images were then reconstructed on the remote workstation. Dose reduction technique was used on this scan by utilizing automated exposure control and iterative reconstruction technique. The dose-length product (DLP) was 1591.92 mGy-cm. CTA neck findings: Bilateral vertebral arteries are patent. Bilateral common carotid, internal carotid, and external carotid arteries are patent. There is 40% stenosis at the proximal right internal carotid artery related to calcified plaque. No significant stenosis of the left internal carotid artery despite calcified plaques present. The proximal right internal carotid artery demonstrates 40% stenosis relative to the normal distal artery lumen diameter. The proximal left internal carotid artery demonstrates 0% stenosis relative to the normal distal artery lumen diameter. CTA head findings: Distal vertebral arteries, basilar artery, and posterior cerebral arteries are patent. Distal internal carotid arteries, middle cerebral arteries, and anterior cerebral arteries are patent. No significant stenosis. No large vessel occlusion. No aneurysm evident. Axial noncontrast images of brain demonstrates no evidence for acute infarct, intracranial hemorrhage, or mass lesion. No mass effect or midline shift. Tierney- white differentiation intact. Ventricles and subarachnoid spaces are minimally prominent. Paranasal sinuses and mastoid air cells are clear. Calvarium intact. Impression: 40% stenosis at the proximal right internal carotid artery. Reviewed, dictated and finalized at location .
[2025-02-02 13:04] LABS: Hemoglobin A1C 7.3 % (<5.7)
[2025-02-02 14:10] LABS: Vitamin B12 863.0 pg/mL (239-931)
--- NOTE | 2025-02-02 14:16 | PM.IMHP ---
H&P: HPI History of Present Illness Date/Time: 02/02/25 14:16 Chief Complaint: Dizziness/TIA/CVA Narrative: Patient is an 84-year-old female with a past medical history of diabetes, atrial fibrillation on anticoagulation, diverticulitis, colitis, and came from home due to dizziness/possible CVA as per the patient's son, who was present during the evaluation. According to Reports yesterday, the patient was normal and was present at family gatherings at [place]. The patient was present at the family gathering until 6:00 p.m. and was dropped off at home by her son. The patient lives alone at home, although her son lives very close by. Around 9:00 p.m., the patient reported she was not able to keep her head up and had severe dizziness. The patient's son was brought to the ED. Pertinent ED labs: WBC 7.4, hemoglobin 15.6, hematocrit 46, platelets 155, sodium 134, potassium 3.3, creatinine 0.9, glucose 193 HbA1c: 7.3 UA shows negative for nitrates and leukocyte esterase. Chest CT: 2.7 x 2.3 cm right upper lobe pulmonary nodule with central calcifications, suggestive of hamartoma. Other etiologies are not definitively excluded. A follow-up exam in 3 months is recommended to reassess. PET/CT or tissue sampling could also be considered as indicated. 8 mm vague groundglass opacity in the left upper lobe. Annual follow-up exam advised. The head/neck CTA shows a 40% stenosis at the right proximal internal carotid artery. MRI of the brain shows : 1. No acute intracranial process. 2. Mild scattered mesenteric white matter T2 hyperintensity, which is within normal limits for age and consistent with chronic small vessel ischemic disease. 3. 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 Patient is admitted, setting of CVA vs TIA vs dehydration vs BPPV. Patient has a significant risk factor for CVA due to past medical history of AFib?patient history A1c 7.3. During the patient's examination, no significant neurological deficits were present. MRI of the brain shows no acute intracranial process and only chronic small vessel ischemic disease. CT angiogram of the head and neck also did not show a significant abnormality other than 40% narrowing of the right internal carotid artery. 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 Review of Systems Review of Systems: All systems reviewed & are unremarkable except as noted in HPI and below [facility] Past Medical History Medical History (Updated 02/02/25 @ 11:47 by Aminah Garcia MD) Hyperlipidemia Vertigo Chronic anticoagulation Paroxysmal atrial fibrillation Essential (primary) hypertension Microalbuminuria Type 2 diabetes mellitus with other diabetic kidney complication High blood pressure Social History Social History Smoking status: Never smoker Alcohol intake: never Substance use: never Substance use type: does not use Do You Feel Safe in your Home?: Yes Lack of Transportation: No Lack of Food: Never True Current Housing: I Have Housing Concerned About Future Housing: No Difficulty Paying Gas/Electric Bills: No Difficulty Paying for Meds: No Currently Unemployed: No Education: High School Diploma/GED Difficulty w/ Childcare or Family Care: No Living arrangements: alone Occupation/Education: retired Gender identity (if verbalized by the patient): Female Sexual Orientation (if Verbalized by the Patient): Straight or Heterosexual Spiritual care concerns: No Meds Home Medications and Allergies Home Medications ?Medication ?Instructions ?Recorded ?Confirmed ?Type digoxin 125 mcg (0.125 mg) tablet 0.125 mg PO DAILY #90 tabs 09/29/24 02/02/25 Rx lisinopril 20 See Rx Instructions .Route 09/29/24 02/02/25 Rx mg-hydrochlorothiazide 25 mg tablet .COMPLEX #90 tabs mesalamine 1.2 gram tablet,delayed 2.4 g (2 x 1.2 gram) PO DAILY 3 09/29/24 02/02/25 Rx release (Lialda) months #180 tabs metformin 500 mg tablet,extended 500 mg PO DAILY #90 tabs 09/29/24 02/02/25 Rx release 24 hr rosuvastatin 10 mg tablet 10 mg PO DAILY #90 tabs 09/30/24 02/02/25 Rx Eliquis 5 mg tablet (apixaban) 5 mg PO BID #180 tabs 12/09/24 02/02/25 Rx dapagliflozin propanediol 10 mg 10 mg PO DAILY #90 tabs 01/12/25 02/02/25 Rx tablet (Farxiga) Allergies Allergy/AdvReac Type Severity Reaction Status Date / Time Sulfa (Sulfonamide Allergy Mild Rash Verified 12/09/24 10:35 Antibiotics) Vital Signs Vital Signs - 24 hr 02/01/25 22:18 02/01/25 22:45 02/01/25 22:52 Temperature 98.5 F Pulse Rate 76 79 Respiratory Rate 11 L Blood Pressure 176/92 H 182/103 H Pulse Oximetry 100 Oxygen Delivery Room Air 02/01/25 22:55 02/01/25 23:51 02/02/25 00:00 Temperature Pulse Rate 82 77 Respiratory Rate 12 16 Blood Pressure 191/97 H Pulse Oximetry 95 97 Oxygen Delivery 02/02/25 00:15 02/02/25 00:16 02/02/25 00:31 Temperature Pulse Rate 86 79 81 Respiratory Rate 18 14 16 Blood Pressure 174/91 H 175/92 H Pulse Oximetry 94 96 97 Oxygen Delivery 02/02/25 00:32 02/02/25 01:08 02/02/25 01:10 Temperature Pulse Rate 88 86 92 Respiratory Rate 18 18 18 Blood Pressure 156/85 H Pulse Oximetry 98 97 97 Oxygen Delivery 02/02/25 01:15 02/02/25 01:16 02/02/25 01:17 Temperature Pulse Rate 87 87 90 Respiratory Rate 12 14 12 Blood Pressure 167/94 H Pulse Oximetry 91 92 94 Oxygen Delivery 02/02/25 02:04 02/02/25 02:22 02/02/25 02:30 Temperature Pulse Rate 86 84 Respiratory Rate 17 15 15 Blood Pressure Pulse Oximetry 96 97 Oxygen Delivery 02/02/25 02:31 02/02/25 03:08 02/02/25 03:17 Temperature Pulse Rate 82 85 80 Respiratory Rate 15 16 15 Blood Pressure 111/67 Pulse Oximetry 98 100 99 Oxygen Delivery 02/02/25 03:30 02/02/25 03:31 02/02/25 03:45 Temperature Pulse Rate 78 81 80 Respiratory Rate 14 14 14 Blood Pressure 109/68 Pulse Oximetry 100 100 100 Oxygen Delivery 02/02/25 03:46 02/02/25 04:00 02/02/25 04:01 Temperature Pulse Rate 76 88 92 Respiratory Rate 15 16 18 Blood Pressure 120/65 127/76 Pulse Oximetry 100 100 100 Oxygen Delivery 02/02/25 04:15 02/02/25 04:16 02/02/25 04:42 Temperature Pulse Rate 88 85 101 H Respiratory Rate 15 14 16 Blood Pressure 112/62 Pulse Oximetry 99 100 Oxygen Delivery 02/02/25 04:51 02/02/25 05:29 02/02/25 05:38 Temperature Pulse Rate 90 88 90 Respiratory Rate 14 13 19 Blood Pressure Pulse Oximetry 96 95 95 Oxygen Delivery 02/02/25 06:03 02/02/25 06:15 02/02/25 06:16 Temperature Pulse Rate 90 82 97 Respiratory Rate 12 20 18 Blood Pressure 158/78 H Pulse Oximetry 97 95 93 Oxygen Delivery 02/02/25 06:30 02/02/25 06:31 02/02/25 06:45 Temperature Pulse Rate 99 103 H 93 Respiratory Rate 16 16 17 Blood Pressure 154/66 H Pulse Oximetry 96 97 95 Oxygen Delivery 02/02/25 06:46 02/02/25 07:22 02/02/25 07:24 Temperature Pulse Rate 83 83 91 Respiratory Rate 15 18 Blood Pressure 135/69 166/76 H Pulse Oximetry 95 98 96 Oxygen Delivery 02/02/25 07:24 02/02/25 12:00 02/02/25 13:56 Temperature 97.1 F L Pulse Rate 85 87 85 Respiratory Rate 14 18 Blood Pressure 166/76 H 162/79 H Pulse Oximetry 96 97 Oxygen Delivery Exam Narrative: GENERAL: Well-appearing, well-nourished, and in no acute distress. HEAD: Normocephalic, atraumatic. EYES: Non injected, non icteric ENT: Nares clear, no rhinorrhea or epistaxis. Gross auditory acuity intact. NECK: Supple. No meningismus. CHEST: Speaking in full sentences. No respiratory distress. HEART: IRRegularly irregular rate and rhythm. . ABDOMEN: Soft, nondistended. No rigidity or guarding. Not peritoneal EXTREMITIES: Normal range of motion. No lower extremity edema. SKIN: Warm, dry, no rash. NEURO: No focal deficits. Alert and oriented. Answering questions. Following commands. Normal speech without aphasia or dysarthria. PSYCH: Normal mood and affect. Const: General: cooperative, well developed and alert Orientation/consciousness: oriented to person, oriented to place and oriented to time HENMT: Head: atraumatic Mouth: Yes oropharynx normal Eyes: Alignment and Position: position normal Pupils: Equal, round and reactive pupils present EOM: EOMs intact bilaterally Neck: Neck: supple Resp: Effort & Inspection: normal respiratory effort Skin: General skin exam: normal color Neuro: General: oriented to person, oriented to place and oriented to time Cranial nerves: Yes CN's II-XII intact bilaterally, Yes Equal, round and reactive pupils present, Yes Bilaterally intact EOM present, Yes Nystagmus not present, Yes facial symmetry, Yes Midline tongue present and Yes Symmetric palate elevation present Cognition (Neuro): normal cognition Speech: normal speech Motor exam (neuro): 5/5 motor strength present throughout, Normal motor muscle tone present throughout and Motor abnormalities not present Sensory Exam: normal sensation Coordination: [id number] test normal and Normal rapid alternating movements of the distal upper extremity present (Neuro) Extrem: General: normal to inspection Psych: Mental Status: mental status grossly normal Affect: normal affect H&P: Results Labs Labs: Short CBC 02/01/25 Range/Units 22:31 WBC 7.4 (4.5-10.0) K/mm3 Hgb 15.6 H (12.0-15.0) g/dL Hct 46.0 (37.0-47.0) % Plt Count 155 (150-375) k/mm3 BMP 02/01/25 23:48 Sodium 134 L Potassium 3.3 L Chloride 96 L Carbon Dioxide 31 H BUN 23 H Creatinine 0.90 Glucose 193 H Calcium 10.0 Cardiac Enzymes 02/01/25 Range/Units 23:48 Troponin I < 0.012 (0.000-0.034) ng/mL Liver Function 02/01/25 Range/Units 23:48 Total Bilirubin 0.7 (0.2-1.3) mg/dL AST 35 (14-36) U/L ALT 30 (6-35) U/L Alkaline Phosphatase 66 (38-126) U/L Albumin 4.5 (3.5-5.1) g/dL Urine 02/01/25 Range/Units 23:11 Urine Color Yellow (Yellow) Urine Appearance Clear (Clear) Urine pH 7.0 (5.0-9.0) Ur Specific [place] 1.019 (1.001-1.035) Urine Protein Negative (Negative) mg/dL Urine Glucose (UA) 3+ H (Negative) mg/dL Assessment and Plan Assessment and plan (1) Vertigo: Code(s): R42 - Dizziness and giddiness Status: Acute Assessment and Plan: -MRI Brain: 1. No acute intracranial process. 2. Mild scattered mesenteric white matter T2 hyperintensity which within normal limits for age and consistent with chronic small vessel ischemic disease. 3. 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 -CTA neck: 40% occlusion of her right proximal internal carotid artery -NIHS 0 -echo pending -bedside swallow shows no evidence of aspiration -continue rosuvastatin 10 mg p.o. q.d. -LDL goal less than 70 -if neurology recommends will add clopidogrel -neurology consulted -speech and swallow evaluation -PT/OT eval - not candidate for thrombolytics due to resolution - not candidate for thrombectomy, no LVO on CTA -Bedside swallow eval (2) Essential (primary) hypertension: Code(s): I10 - Essential (primary) hypertension Status: Acute Assessment and Plan: Continue home medication lisinopril 20 mg/hydrochlorothiazide 25 mg (3) Paroxysmal atrial fibrillation: Code(s): I48.0 - Paroxysmal atrial fibrillation Status: Acute Assessment and Plan: The patient is on chronic anticoagulation with Eliquis. (4) Type 2 diabetes mellitus with other diabetic kidney complication: Code(s): E11.29 - Type 2 diabetes mellitus with other diabetic kidney complication Status: Acute Assessment and Plan: Low-dose sliding scale Hypoglycemic protocol HbA1c 7.8 (5) Hyperlipidemia: Code(s): E78.5 - Hyperlipidemia, unspecified Status: Acute Assessment and Plan: Continue rosuvastatin 10 mg p.o. q.d. Plan Code status: Full code DVT prophylaxis continue Eliquis 5 mg p.o. b.i.d. Hospitalist [facility] Advance Care Plan I have confirmed that the patient's Advanced Care Plan is present, code status is documented, or surrogate decision maker is listed in patient medical record.: Yes Medication Reconciliation I have utilized all available resources to obtain, update and review the patients current medications (includes all prescriptions, OTC, herbals, cannabis, and nutritional supplements).: Yes
[2025-02-02] MEDS: APIXABAN 5 MG TABLET PO (21:27)
[2025-02-03] VITALS (9 sets, daily range): BP systolic 128–146; BP diastolic 69–94; PULSE 73–95; RESP 16–20; TEMP 36.3–36.8; O2SAT 95–99
--- NOTE | 2025-02-03 | ECHO_ITS ---
Patient Info Name: Eden Mccray Age: 84 years : 1940 Gender: Female Ht: 65 in Wt: 123 lbs BSA: 1.60 m2 HR: 75 bpm BP: 146 / 75 mmHg Heart Rhythm: Atrial Fibrillation Technical Quality: Good Exam Date: 02/03/2025 1:06 PM Patient Status: O Admit Date: 02/02/2025 Exam Type: CA echo doppler w bubble study Complete two-dimensional, color flow and Doppler transthoracic echocardiogram is performed with agitated saline. Staff Referring Physician: Zeina Burden Spragger: Sonam Haley Attending Provider: Tatiana Vasquez DO Contrast/Agitated Saline Contrast/Ag. Saline: Agitated Saline Amount: 18.00 ml Existing IV Access: Yes IV Access Condition: patent with no signs of infiltration Summary 1. Left ventricular chamber dimension is normal. 2. Left ventricular systolic function is normal, estimated at 60-65. 3. There is mild concentric increased left ventricular wall thickness. 4. The left ventricular diastolic function is abnormal. 5. E/e' 12 is mildly elevated. 6. Atrial fibrillation. 7. Left atrial chamber dimension is mildly enlarged. 8. There is moderate aortic valve sclerosis. 9. The mitral valve has a moderately calcified annulus. 10. There is trace mitral valve regurgitation. 11. There is trace tricuspid valve regurgitation. 12. No pulmonary hypertension, estimated pulmonary arterial systolic pressure is 29 mmHg. Left Ventricle E/e' 12 is mildly elevated. Left ventricular chamber dimension is normal. Left ventricular systolic function is normal, estimated at 60-65. There is mild concentric increased left ventricular wall thickness. The left ventricular diastolic function is abnormal. Atrial fibrillation. Right Ventricle Right ventricular chamber dimension is normal. Right ventricular systolic function is normal. Left Atria Left atrial chamber dimension is mildly enlarged. Right Atria Right atrial chamber dimension is normal. Atrial Septum Intact interatrial septum visualized by 2D and agitated saline imaging. Agitated saline injection with and without valsalva maneuver opacified right side cardiac chambers without shunt to left side cardiac chambers. Aortic Valve The aortic valve is trileaflet. There is moderate aortic valve sclerosis. There is no aortic valve stenosis. There is no aortic valve regurgitation. Pulmonic Valve There is no pulmonic regurgitation. Mitral Valve The mitral valve has a moderately calcified annulus. There is no mitral valve stenosis. There is trace mitral valve regurgitation. Tricuspid Valve There is trace tricuspid valve regurgitation. No pulmonary hypertension, estimated pulmonary arterial systolic pressure is 29 mmHg. Pericardium/Pleural There is no pericardial effusion. Inferior Vena Cava Normal inferior vena cava with >50% collapse upon inspiration consistent with normal right atrial pressure, 5 mmHg. Aorta The aortic root size at the sinus of Valsalva is normal. Left Ventricular Outflow Tract Name Value Normal LVOT 2D LVOT Diameter 1.9 cm LVOT Doppler LVOT Peak Velocity 81 cm/s LVOT Peak Gradient 2 mmHg LVOT Mean Gradient 2 mmHg LVOT VTI 17 cm LVOT VTI/AV VTI Ratio 1.1 LVOT Stroke Volume 46 ml LVOT CO 4.4 l/min LVOT CI 2.8 l/min/m2 Pulmonic Valve Name Value Normal RVOT Doppler RVOT Peak Velocity 78 cm/s RVOT Peak Gradient 2 mmHg PV Doppler PV Peak Velocity 85 cm/s PV Peak Gradient 3 mmHg Mitral Valve Name Value Normal MV Diastolic Function MV E Peak Velocity 107 cm/s MV A Peak Velocity 1 cm/s MV E/A 134.3 MV Decel Time (PW) 193 ms Tricuspid Valve Name Value Normal TV Regurgitation Doppler TR Peak Velocity 244 cm/s TR Peak Gradient 16 mmHg Estimated PAP/RSVP RA Pressure 5 mmHg <=5 PA Systolic Pressure 29 mmHg <36 RV Systolic Pressure 29 mmHg <36 Aorta Name Value Normal Ascending Aorta Ao Root Diameter (MM) 2.9 cm Ao Root Diam Index (MM) 1.8 cm/m2 Aortic Valve Name Value Normal AV Doppler AV Peak Velocity 85 cm/s AV Peak Gradient 3 mmHg AV Mean Gradient 2 mmHg AV VTI 16 cm AV Area (Cont Eq VTI) 2.9 cm2 >=3.0 AV Area (Cont Eq Ashok) 2.6 cm2 AV DI (Ashok) 0.95 AV Regurgitation 2D LVOT Area 2.7 cm2 Ventricles Name Value Normal LV Dimensions 2D/MM IVS Diastolic Thickness (2D) 0.9 cm 0.6-1.0 LVID Diastole (2D) 3.6 cm 3.8-5.2 LVIW Diastolic Thickness (2D) 1.0 cm 0.6-0.9 LVID Systole (2D) 2.1 cm 2.2-3.5 LVOT Diameter 1.9 cm LV Mass (2D Cubed) 100.64 g 67.00-162.00 LV Mass Index (2D Cubed) 63 g/m2 43-95 Relative Wall Thickness (2D) 0.56 <=0.42 LV Fractional Shortening/Ejection Fraction 2D/MM LV Fractional Shortening (2D) 40 % 27-45 LV EF (2D Teichholz) 72 % LV Diastolic Volume (4C MOD) 25 ml LV EF (4C MOD) 67 % LV Diastolic Volume (2C MOD) 23 ml LV EF (2C MOD) 72 % LV Diastolic Volume (BP MOD) 25 ml 46-106 LV Diastolic Volume Index (BP MOD) 16 ml/m2 29-61 LV Systolic Volume (BP MOD) 8 ml 14-42 LV Systolic Volume Index (BP MOD) 5 ml/m2 8-24 LV EF (BP MOD) 68 % 54-74 LV Diastolic Length (4C) 5.1 cm LV Systolic Length (4C) 4.6 cm LV Stroke Volume (4C MOD) 17 ml Atria Name Value Normal LA Dimensions LA Dimension (MM) 4.4 cm 2.7-3.8 LA Volume (4C A-L) 34 ml LA Volume (BP A-L) 32 ml RA Dimensions RA Systolic Major Blanco Length (4C) 5.0 cm 2.2-2.8 RA Area (4C) 15.5 cm2 <=18.0 Report Signatures
[2025-02-03 06:50] LABS: Cholesterol 163 mg/dL (0-200); HDL Direct 44 mg/dL; Triglycerides 176 mg/dL (<150)
[2025-02-03] MEDS: DIGOXIN TAB 125 MCG TABLET PO (08:58)
[2025-02-03] MEDS: APIXABAN 5 MG TABLET PO ×2 (08:59→21:08)
[2025-02-03] MEDS: ROSUVASTATIN 10 MG TABLET PO (09:00)
--- NOTE | 2025-02-03 15:13 | P.PNIM_ITS ---
Progress Note: A&P Assessment and Plan (1) Vertigo: Code(s): R42 - Dizziness and giddiness Status: Acute Assessment and Plan: -MRI Brain: 1. No acute intracranial process. 2. Mild scattered mesenteric white matter T2 hyperintensity which within normal limits for age and consistent with chronic small vessel ischemic disease. 3. 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 -CTA neck: 40% occlusion of her right proximal internal carotid artery -NIHS 0 -echo pending -bedside swallow shows no evidence of aspiration -continue rosuvastatin 10 mg p.o. q.d. -LDL goal less than 70 -if neurology recommends will add clopidogrel -neurology consulted -speech and swallow evaluation -PT/OT eval - not candidate for thrombolytics due to resolution - not candidate for thrombectomy, no LVO on CTA -Bedside swallow eval Likely Benign Paroxysmal Positional Vertigo Neurology following awaiting ECHO (2) Essential (primary) hypertension: Code(s): I10 - Essential (primary) hypertension Status: Acute Assessment and Plan: Continue home medication lisinopril 20 mg/hydrochlorothiazide 25 mg (3) Paroxysmal atrial fibrillation: Code(s): I48.0 - Paroxysmal atrial fibrillation Status: Acute Assessment and Plan: The patient is on chronic anticoagulation with Eliquis. (4) Type 2 diabetes mellitus with other diabetic kidney complication: Code(s): E11.29 - Type 2 diabetes mellitus with other diabetic kidney complication Status: Acute Assessment and Plan: Low-dose sliding scale Hypoglycemic protocol HbA1c 7.8 (5) Hyperlipidemia: Code(s): E78.5 - Hyperlipidemia, unspecified Status: Acute Assessment and Plan: Continue rosuvastatin 10 mg p.o. q.d. Plan Code status: Full code DVT prophylaxis continue Eliquis 5 mg p.o. b.i.d. Subjective Date/time seen: 02/03/25 15:13 Interval history: Comfortable at bedside Review of Systems Review of Systems: All systems reviewed & are unremarkable except as noted in HPI and below Exam Narrative: GENERAL: Well-appearing, well-nourished, and in no acute distress. HEAD: Normocephalic, atraumatic. EYES: Non injected, non icteric ENT: Nares clear, no rhinorrhea or epistaxis. Gross auditory acuity intact. NECK: Supple. No meningismus. CHEST: Speaking in full sentences. No respiratory distress. HEART: IRRegularly irregular rate and rhythm. . ABDOMEN: Soft, nondistended. No rigidity or guarding. Not peritoneal EXTREMITIES: Normal range of motion. No lower extremity edema. SKIN: Warm, dry, no rash. NEURO: No focal deficits. Alert and oriented. Answering questions. Following commands. Normal speech without aphasia or dysarthria. PSYCH: Normal mood and affect. Const: General: cooperative, well developed and alert Orientation/consciousness: oriented to person, oriented to place and oriented to time HENMT: Head: atraumatic Mouth: Yes oropharynx normal Eyes: Alignment and Position: position normal Pupils: Equal, round and reactive pupils present EOM: EOMs intact bilaterally Neck: Neck: supple Resp: Effort & Inspection: normal respiratory effort Skin: General skin exam: normal color Neuro: General: oriented to person, oriented to place and oriented to time Cranial nerves: Yes CN's II-XII intact bilaterally, Yes Equal, round and reactive pupils present, Yes Bilaterally intact EOM present, Yes Nystagmus not present, Yes facial symmetry, Yes Midline tongue present and Yes Symmetric palate elevation present Cognition (Neuro): normal cognition Speech: normal speech Motor exam (neuro): 5/5 motor strength present throughout, Normal motor muscle tone present throughout and Motor abnormalities not present Sensory Exam: normal sensation Coordination: [id number] test normal and Normal rapid alternating movements of the distal upper extremity present (Neuro) Extrem: General: normal to inspection Psych: Mental Status: mental status grossly normal Affect: normal affect Objective Data Vital Signs Vital Signs: Vital Signs - 24 hr 02/02/25 16:00 02/02/25 20:00 02/02/25 20:00 Temperature Pulse Rate 81 88 68 Respiratory Rate 20 Blood Pressure Pulse Oximetry 95 Oxygen Delivery Room Air Fraction of Inspired Oxygen 02/02/25 20:16 02/02/25 23:35 02/03/25 00:00 Temperature 97.8 F Pulse Rate 74 105 H 83 Respiratory Rate 18 20 Blood Pressure 112/65 Pulse Oximetry 95 95 Oxygen Delivery Room Air Fraction of Inspired Oxygen 02/03/25 04:28 02/03/25 07:29 02/03/25 08:00 Temperature 97.3 F L Pulse Rate 75 84 Respiratory Rate 16 Blood Pressure 146/75 H Pulse Oximetry 96 Oxygen Delivery Room Air Fraction of Inspired Oxygen 02/03/25 08:58 02/03/25 14:00 Temperature 97.8 F Pulse Rate 84 95 Respiratory Rate 18 Blood Pressure 128/94 H Pulse Oximetry 95 Oxygen Delivery Fraction of Inspired Oxygen Intake/Output Intake/Output: Intake & Output 01/31/25 02/01/25 02/02/25 02/03/25 23:59 23:59 23:59 23:59 Intake Total 2080 790 Balance 2080 790 Meds/Results Medications: Active Medications Generic Name Dose Route Start Last Admin Trade Name Freq PRN Reason Stop Dose Admin Acetaminophen 650 mg 02/02/25 06:24 Acetaminophen 650 Mg Suppository RECTAL Q6H PRN Mild Pain (1-3) or Fever Apixaban 5 mg 02/02/25 21:00 02/03/25 08:59 Apixaban 5 Mg Tablet PO 5 mg Q12HR CECE Administration Dextrose 12.5 gm 02/02/25 11:23 Dextrose 50% 25 Gm/50 Ml Syringe IV PUSH PRN PRN Hypoglycemia Protocol Digoxin 125 mcg 02/03/25 09:00 02/03/25 08:58 Digoxin Tab 125 Mcg Tablet PO 125 mcg DAILY CECE Administration Glucose 15 gm 02/02/25 11:23 Glucose Oral Gel 15 Gm Of Glucse In 37.5 Gm Tube PO PRN PRN Hypoglycemia Protocol Hydrochlorothiazide 25 mg 02/03/25 09:00 02/03/25 09:00 Hydrochlorothiazide 25 Mg Tablet PO 25 mg QAM CECE Administration Dextrose 1,000 mls @ 100 mls/hr 02/02/25 11:23 Dextrose 5% 1,000 Ml IVPB PRN PRN Hypoglycemia Protocol Insulin Aspart 2 - 5 units 02/02/25 12:00 02/03/25 11:49 Insulin Aspart (*Bkc) 100 Units/Ml SUB-Q Not Given TIDWM [facility] Protocol Insulin Aspart 1 - 2 units 02/02/25 21:00 02/02/25 22:11 Insulin Aspart (*Bkc) 100 Units/Ml SUB-Q Not Given HS CECE Protocol Lisinopril 20 mg 02/03/25 09:00 02/03/25 08:59 Lisinopril 20 Mg Tablet PO 20 mg QAM CECE Administration Miscellaneous Information 1 each 02/03/25 00:01 Lialda Is Nonform; Can Pt Use From Home? XX 03/05/25 00:00 CLARIFY CECE Non-Formulary Medication 2.4 gm 02/03/25 09:00 Mesalamine [Lialda] PO 03/05/25 08:59 DAILY [facility] Ondansetron HCl 4 mg 02/02/25 06:24 Ondansetron Inj 4 Mg/2 Ml Vial IV PUSH Q4H PRN Nausea Perflutren Lipid Microsphere 0 ml 02/03/25 08:14 Perflutren Lipid Microspheres 1.5 Ml Vial Diluted To 10 Ml Total Volume IV PUSH 02/06/25 08:14 ONCE PRN adequate visualization Protocol Rosuvastatin Calcium 10 mg 02/03/25 09:00 02/03/25 09:00 Rosuvastatin 10 Mg Tablet PO 10 mg DAILY [facility] Administration Radiology Results: ITS Impressions Chest X-Ray 02/02/25 05:53 Impression: 1: Bilateral interstitial infiltrates of the upper lobes, suspicious for edema versus atypical pneumonia. 2: Right paramediastinal mass, suspicious for malignancy. Correlation with CT chest with contrast recommended. Head/Neck CTA 02/02/25 06:11 Impression: 40% stenosis at the proximal right internal carotid artery. Chest CT 02/02/25 07:32 Impression: 2.7 x 2.3 cm right upper lobe pulmonary nodule with central calcifications, suggestive of hamartoma. Other etiologies are not definitively excluded. Follow- up exam in 3 months recommended to reassess. PET/CT or tissue sampling could also be considered as indicated. 8 mm vague groundglass opacity left upper lobe. Annual follow-up exam advised. Brain MRI 02/02/25 13:53 IMPRESSION: 1. No acute intracranial process. 2. Mild scattered mesenteric white matter T2 hyperintensity which within normal limits for age and consistent with chronic small vessel ischemic disease. 3. 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 Labs Labs: Laboratory Results - last 24 hr 02/02/25 02/02/25 02/02/25 16:23 20:19 21:34 POC Capillary Glucose 175 H 215 H 163 H Triglycerides Cholesterol LDL Cholesterol Direct HDL Direct 02/03/25 02/03/25 02/03/25 06:07 07:30 11:26 POC Capillary Glucose 118 H 143 H Triglycerides 176 H Cholesterol 163 LDL Cholesterol Direct 74 HDL Direct 44
[2025-02-04] VITALS (8 sets, daily range): BP systolic 119–138; BP diastolic 62–74; PULSE 71–90; RESP 18–20; TEMP 36.4; O2SAT 94–98
[2025-02-04 05:58] LABS: Hematocrit 46.0 % (37.0-47.0); Hemoglobin 15.3 g/dL (12.0-15.0); Immature Granulocyte Percent A 0.4 % (0-0.5); Immature Platelet Fraction Pct 5.6 % (0.9-11.2); Lymphocytes Absolute Auto 1.11 K/mm3 (0.9-3.2); Mean Corpuscular HGB Conc 33.3 g/dl (32-36); Mean Corpuscular Hemoglobin 31.2 pg (26-34); Mean Corpuscular Volume 93.7 fl (80-100); Nucleated Red Blood Cells Absolute Auto 0.000 K/mm3 (0.0-0.012); Nucleated Red Blood Cells Perc 0.0 % (0.0-0.2); Platelet Count Result 129 k/mm3 (150-375); Red Blood Count 4.91 M/mm3 (4.2-5.4); White Blood Count 7.9 K/mm3 (4.5-10.0)
[2025-02-04 06:19] LABS: Alanine Aminotransferase 22 U/L (6-35); Albumin Level 3.8 g/dL (3.5-5.1); Alkaline Phosphatase 53 U/L (38-126); Anion Gap 5 mmol/L (4-12); Aspartate Amino Transferase 37 U/L (14-36); Bilirubin,Total 1.0 mg/dL (0.2-1.3); Blood Urea Nitrogen 17 mg/dL (7-17); Calcium 9.2 mg/dL (8.4-10.2); Carbon Dioxide 32 mmol/L (22-30); Chloride 100 mmol/L (98-107); Estimated CRCL calculation 49 ml/min; Estimated Glomerular Filt Rate > 60; Glucose 140 mg/dL (65-110); Magnesium 1.9 mg/dL (1.6-2.3); Potassium 3.5 mmol/L (3.4-5.0); Sodium 137 mmol/L (137-145); Total Protein 6.1 g/dL (6.3-8.2)
[2025-02-04] MEDS: DIGOXIN TAB 125 MCG TABLET PO (08:30)
[2025-02-04] MEDS: APIXABAN 5 MG TABLET PO (08:30)
[2025-02-04] MEDS: ROSUVASTATIN 10 MG TABLET PO (08:31)
--- NOTE | 2025-02-04 14:10 | PCOTNOTE ---
Pt is dressed and waiting on discharge to home. Pt seen by PT and SBA for mobility. Spoke with pt and her daughter and they state no needs for OT evaluation due to pending d/c. Pt has shower chair in shower in case of dizziness.
--- NOTE | 2025-02-04 14:12 | P.DS_ITS ---
DS: Admitting Diagnosis Discharge Date 02/04/25 Admitting Diagnosis Dizziness/TIA/CVA DS: Discharge Diagnosis Discharge Diagnosis (1) Vertigo: Code(s): R42 - Dizziness and giddiness Status: Acute DS: Summary Hospital Course Hospital Course: The patient is an 84-year-old female with a history of diabetes (HbA1c 7.3), atrial fibrillation on anticoagulation, diverticulitis, and colitis, who presented from home with acute onset severe dizziness and inability to keep her head up, raising concern for possible CVA/TIA. She was last seen normal at a family gathering earlier that evening. On admission, there were no significant neurological deficits on exam. Pertinent findings: * Labs:?WBC 7.4, Hgb 15.6, Hct 46, Plt 155, Na 134, K 3.3, Cr 0.9, Glucose 193. * UA:?Negative for infection. * Imaging: * Chest CT:?2.7 x 2.3 cm RUL pulmonary nodule with central calcification (likely hamartoma); 8 mm vague groundglass PANFILO opacity. Pulmonology recommends outpatient follow-up. * Head/Neck CTA:?40% stenosis of right proximal internal carotid artery. * Brain MRI:?No acute intracranial process; mild chronic small vessel ischemic changes; developmental venous anomaly in right cerebellar hemisphere. * Neurology was consulted. Patient narrated that her sympotms are worse/triggered with neck movement and thus BPPV was highly suspected. ECHO normal EF. PT evalauted patietn with [place] Smyth Devers maneuvre whcih she noted was positive and thus patitne was dsicharged to verstibular therapy outpatient. Orthostatic vital signs normal. patient will follow up with PCP in 3-5 days F/u with neurology as instructed and continue vestibualr therapy outpatient Time Spent with Patient Time attestation: Total time spent providing and/or coordinating discharge services: DS: Data Data Completed and Pending Labs on day of discharge: Labs from last 24 hours 02/04/25 02/04/25 02/04/25 11:22 07:16 05:42 WBC 7.9 RBC 4.91 Hgb 15.3 H Hct 46.0 MCV 93.7 MCH 31.2 MCHC 33.3 RDW 12.3 Plt Count 129 L MPV 11.4 H Immature Gran % (Auto) 0.4 Neut % (Auto) 75.8 H Lymph % (Auto) 14.1 L [place] % (Auto) 7.4 Eos % (Auto) 1.7 Baso % (Auto) 0.6 Lymph # (Auto) 1.11 [place] # (Auto) 0.6 Eos # (Auto) 0.1 Baso # (Auto) 0.1 Abs Immat Gran (auto) 0.03 Absolute Neuts (auto) 6.0 Absolute Nucleated RBC 0.000 Nucleated RBC % 0.0 % Immature Plt Fraction 5.6 Sodium 137 Potassium 3.5 Chloride 100 Carbon Dioxide 32 H Anion Gap 5 BUN 17 Creatinine 0.64 L Estim Creat Clear Calc 49 Estimated GFR > 60 Glucose 140 H POC Capillary Glucose 173 H 165 H Calcium 9.2 Magnesium 1.9 Total Bilirubin 1.0 AST 37 H ALT 22 Alkaline Phosphatase 53 Total Protein 6.1 L Albumin 3.8 02/03/25 02/03/25 20:36 17:05 WBC RBC Hgb Hct MCV MCH MCHC RDW Plt Count MPV Immature Gran % (Auto) Neut % (Auto) Lymph % (Auto) [place] % (Auto) Eos % (Auto) Baso % (Auto) Lymph # (Auto) [place] # (Auto) Eos # (Auto) Baso # (Auto) Abs Immat Gran (auto) Absolute Neuts (auto) Absolute Nucleated RBC Nucleated RBC % % Immature Plt Fraction Sodium Potassium Chloride Carbon Dioxide Anion Gap BUN Creatinine Estim Creat Clear Calc Estimated GFR Glucose POC Capillary Glucose 184 H 186 H Calcium Magnesium Total Bilirubin AST ALT Alkaline Phosphatase Total Protein Albumin Discharge Plan Discharge Attending physician on discharge: Savannah Sullivan Consulting providers: Aminah Garcia; Savannah Sullivan Discharging Clinician: Savannah Sullivan Anticipated Discharge Date/Time: 02/04/25 14:09 Patient Disposition: Home Activity: as tolerated Diet: as tolerated and diabetic Discharge Instructions: Outpatient vestibular therapy Patient Instructions: Antibiotic Form, Apixaban (By mouth) Patient Language: [place] Leone[place] Stand Alone Forms: General Discharge Information Follow-up/Referrals: Jose Tucker MD [Primary Care Provider] - (F/u with PCP in 3-5 days ) Aminah Garcia MD [Physician] - (F/u with neurology as instructed ) Discharge Medications: Continued Eliquis 5 mg tablet 5 mg PO BID Qty: 180 1RF digoxin 125 mcg (0.125 mg) tablet 0.125 mg PO DAILY Qty: 90 1RF lisinopril-hydrochlorothiazide 20-25 mg tablet See Rx Instructions .ROUTE .COMPLEX Qty: 90 0RF Dose Instruction: TAKE 1 TABLET BY MOUTH EVERY DAY Rx Instructions: TAKE 1 TABLET BY MOUTH EVERY DAY mesalamine [Lialda] 1.2 gram tablet,delayed release (DR/EC) 2.4 g PO DAILY 90 Days Qty: 180 4RF metformin 500 mg tablet extended release 24 hr 500 mg PO DAILY Qty: 90 1RF rosuvastatin 10 mg tablet 10 mg PO DAILY Qty: 90 1RF Farxiga 10 mg tablet 10 mg PO DAILY Qty: 90 1RF Date of admission: 02/02/25 06:25 Primary Care Provider: Jose Tucker Admitting Provider: Tatiana Vasquez Attending physician on admission: Tatiana Vasquez Condition: Stable
== END 2025-02-04 15:43 | disposition home or self-care (01) ==
LOC: ANHED 02-02 06:47 → ANH3MEDSUR 02-03 07:34
PROVIDERS: Psychiatry & Neurology Neurology; Admitting Provider Internal Medicine; Emergency Provider Student in an Organized Health Care Education/Training Program; PCP Family Medicine; Visit Provider Internal Medicine
DX: R42 Dizziness and giddiness (principal); E11.65 Type 2 diabetes mellitus with hyperglycemia; Z79.01 Long term (current) use of anticoagulants; Z79.82 Long term (current) use of aspirin; I10 Essential (primary) hypertension; E78.5 Hyperlipidemia, unspecified; I48.0 Paroxysmal atrial fibrillation
CPT/HCPCS: 36415; 70496; 70498; 70553; 71045; 71260; 80053; 80061; 81003; 82306; 82607; 82746; 82948; 83036; 83690; 83735; 84484; 85025; 85055; 93005; 93306; 96361; 96374; 96375; 96376; 97162; 97530; 99285; A9270; A9579; G0378; J0780; J1200; J1885; J2405; J2550; J3360; J7030; Q9967

== ENCOUNTER 2025-04-30 10:03 | Outpatient (CLI) | payer MEDICARE, SELFPAY ==
--- OUTSIDE RECORDS SUMMARY | 2000-12-24 11:00 | XMS_ITS | Continuity of Care Document ---
Author Organization [facility] Address [address] [place] [address] Phone Care Team Providers Care Nursing Officer Name Role Phone Sybil Townsend Unavailable Unavailable Advance Directives Directive Yes / No Effective Date File Name No Information Encounters Encounter Description Practice Location Reason(s) For Visit Diagnoses Date Provider Providers Copied on Encounter [facility], [address], [place], [place], [id number], [place] tel:[phone] [facility] No Information [address] , [address], [place], [address], [place]. tel:[phone] Family History Family Member Type Diagnosis Age At Onset No Information Payers Payer name Insurance type Covered libertarian ID Authoriza tion(s) No Information Social History Type Description Quantity Date Captured Comments Sex Female Smoking Status No Information Chief Complaint And Reason For Visit No Information Reason For Referral Reason For Referral No Information History Of Present Illness Encounter Date Complaint History Of Prese nt Illness No Information Functional Status Date Functional Assessmen t No Information Instructions Date Instruction Additional Infor mation No Information Assessments Type Assessment Date No Information Patient Care Teams Name Effective Dates (start - stop) Status Members No Information
--- OUTSIDE RECORDS SUMMARY | 2024-10-23 08:40 | XMS_ITS ---
Author Organization [facility] Address [address] [place], [place] [id number] Care Team Providers Care Band And Cuff Cutter Name Role Phone ASHLEE MARTINEZ Unavailable [phone] NoririckAshlee Unavailable Unavailable CELESTINO ASHLEE Unavailable [phone] Allergies Allergen (clinical drug ingredient) Drug/Non Drug Allergy documented on EMR Reaction Allergy Type Onset Date Status Substance with sulfonamide structure and antibacterial mechanism of action (substance) Product containing sulfonamide (product) (uncoded) Unknown Allergy 12/03/2020 active Latex Latex Unknown Allergy 12/03/2020 active REASON FOR VISIT Right great toe check Medications Medication SIG (Take, Route, Frequency, Duration) Notes Start Date End Date Status Cephalexin 500 MG Tablet 1 tablet Orally Twice a day; Duration: 7 days 10/16/2024 10/23/2024 Active Clotrimazole-Betamet hasone 1-0.05 % Cream 1 application Externally Twice a day; Duration: 30 days one tube, 30g or similar Active Clotrimazole-Betamet hasone 1-0.05 % Cream 1 application Externally Twice a day one 30g tube or similar 01/07/2024 Active Social History Social History Additional Details Category Social Info Options Details Migrated Social History Migrated Social History History of tobacco use : , Smoking Status : Never used tobacco Vital Signs Height 62.00 in 10/23/2024 Weight 127 lbs 10/23/2024 BMI 23.23 kg/m2 10/23/2024 Height-cm 157.48 cm 10/23/2024 Weight-kg 57.61 kg 10/23/2024 Encounters Encounter Location Date Provider Diagnosis [facility] [address] [place], [place] [id number] 10/23/2024 ASHLEE VALENTE Pain in right toe(s) M79.674 and Contusion of right great toe without damage to nail, subsequent encounter S90.111D Assessments Encounter Date Diagnosis (ICD Code) Assessment Notes Treatment Notes Treatment Clinical Notes Section Notes 10/23/2024 Pain in right toe(s) (ICD-10 - M79.674) 10/23/2024 Contusion of right great toe without damage to nail, subsequent encounter (ICD-10 - S90.111D) 10/23/2024 Other I advised the patient that no further treatment is necessary at this time. If the condition should worsen they should call the office. Plan Of Treatment Treatment Notes Assessment Notes Other I advised the patien t that no further treatment is necessary at this time. If the condition should worsen they should call the office. History and Physical Notes * HPI (History of Present Illness) Category Sub-Category Detail Notes Category Not es HPI Follow Up Visit Patient presents for follow-up visit for a sore on the tip of her right great toe. Patient states their problem is improving. She states it is doing a lot better. She almost cancelled her appointment because she didn't think she needed to be seen. MA: sea Examination Category Sub-Category Detail Notes Category Not es Constitutional Constitutional The patient is a wake, alert, well developed, well groomed and well nourished. Dermatologic Skin findings: Skin is warm, dr y, supple with no breaks in the skin. Nail pathology: Nails 1-5 bilateral are normal in appearance and thickness. No discoloration. Ulcer: There is no evidence of ulceration noted at this time Hyperkeratotic Skin Lesion There is no e vidence of hyperkeratosis Musculoskeletal Muscle Strength Muscle strength is 5/5 in regards to dorsiflexion, plantarflexion, inversion, and eversion in bilateral lower extremities. Pain on palpation There is no pain on palpation Foot Structure The foot structure i s noted to be normal bilaterally Gait There is normal gait noted Neurologic Muscle power: 5/5 bilaterally Gross sensation Gross sensation is i ntact to light touch. Vascular Dorsalis pedis pulse: 2/4 bilateral Posterior tibial pulse: 2/4 bilaterally Capillary refill: less than 3 seconds bilaterally Temperature gradient: within normal limi ts Progress Notes * LEWIS SAMUELSDOB: 0 (84 yo F)Acc No.[id number]:10/23/2024 Patient: LEWIS CHANCE Provider: Isaías Valente DPM :1940 A ge:84 Y S ex:Female Date:10/23/2024 Address:[address] [facility] [place], [place] [address] Subjective: * Chief Complaints: * R ight great toe check * HPI: H PI: Follow Up Visit P marsha presents for follow-up visit for a sore on the tip of her right great toe. Patient states their problem is improving. She states it is doing a lot better. She almost cancelled her appointment because she didn't think she needed to be seen. MA: oxana. * Medical History: No Medical History Documented Medical History Verified * Family History: F ather: PRN - Father: :: Cancer,,known absent . M other: PRN - Mother: :: Heart Disease < 55 yrs,,known absent . S ister: SIB - Sister: . F amily History Verified.. * Social History: M igrated Social History: M igrated Social History: History of tobacco use : , Smoking Status : Never used tobacco. S ocial History Verified. * Medications: T akingClotrimazole-Betamethasone 1-0.05 % Cream 1 application Externally Twice a day , Notes to Pharmacist: one tube, 30g or similarClotrimazole-Betamethasone 1-0.05 % Cream 1 application Externally Twice a day , Notes to Pharmacist: one 30g tube or similarCephalexin 500 MG Tablet 1 tablet Orally Twice a day , stop date 10/23/2024Medication List reviewed and reconciled with the patientTaking Clotrimazole-Betamethasone 1-0.05 % Cream 1 application Externally Twice a day , Notes to Pharmacist: one tube, 30g or similarTaking Clotrimazole-Betamethasone 1-0.05 % Cream 1 application Externally Twice a day , Notes to Pharmacist: one 30g tube or similarTaking Cephalexin 500 MG Tablet 1 tablet Orally Twice a day , stop date 10/23/2024Medication List reviewed and reconciled with the patient * Allergies: P roduct containing sulfonamide (product): Allergy - Onset Date 12/03/2020atex: Allergy - Onset Date 12/03/2020yesAllergies Verified. Objective: * Vitals: W t: 127 lbs, Wt-k.61 kg, Ht: 62.00 in, Ht-cm: 157.48 cm, BMI: 23.23 Index, Body Surface Area: 1.59. * Examination: C onstitutional: Constitutional T he patient is awake, alert, well developed, well groomed and well nourished. . D ermatologic: Skin findings: S kin is warm, dry, supple with no breaks in the skin. . Nail pathology: N ails 1-5 bilateral are normal in appearance and thickness. No discoloration. . Ulcer: T here is no evidence of ulceration noted at this time . Hyperkeratotic Skin Lesion T here is no evidence of hyperkeratosis . M usculoskeletal: Muscle Strength M uscle strength is 5/5 in regards to dorsiflexion, plantarflexion, inversion, and eversion in bilateral lower extremities. . Foot Structure T he foot structure is noted to be normal bilaterally . Pain on palpation T here is no pain on palpation . Gait T here is normal gait noted . N eurologic: Muscle power: 5 /5 bilaterally . Gross sensation G ross sensation is intact to light touch. . V ascular: Dorsalis pedis pulse: 2 /4 bilateral . Posterior tibial pulse: 2 /4 bilaterally . Capillary refill: l ess than 3 seconds bilaterally . Temperature gradient: w ithin normal limits . ? Assessment: * Assessment: 1. C ontusion of right great toe without damage to nail, subsequent encounter - S90.111D (Primary) 2 . P ain in right toe(s) - M79.674 Plan: * Treatment: * Preventive Medicine: Screenings: F all risk screening Fall Risk Assessment: N o falls in the past year Billing Information: * Visit Code: 56910 Office Visit, Est Pt., Level 3. * Procedure Codes: * Electronic signature of ASHLEE VALENTE DPM on 04/30/2025 at 11:03 AM CDT Sign off status: Pending * Provider: Isaías Valente DPM Date: 0 10/23/2024 Generated for Alda yanez/Narinder/Allie on: 1 11:03 AM CDT
--- NOTE | ~2025-04-30 | CT_ITS ---
CT diagnostic chest wo con HISTORY:R91.1 - Solitary pulmonary nodule COMPARISON: None. TECHNIQUE: Axial images of the chest were obtained without infusion of intravenous contrast. Dose optimization technique was utilized. FINDINGS: The examination demonstrates 2.7 x 2.4 x 2.9 cm right upper lobe pulmonary nodule with central calcification is stable. This previously measured 2.7 x 2.3 cm. Groundglass nodule within the peripheral left upper lobe measures 9.4 mm previously measured 8mm. No new pulmonary nodules seen. Coronary artery calcifications are present. Cardiac size and mediastinal configuration are normal in appearance. No hilar or mediastinal lymphadenopathy is seen. The thoracic aorta is normal in caliber. Osseous structures are intact. IMPRESSION: Stable pulmonary nodules as above. Follow-up CT in 6 months is recommended to ensure stability. All CT scans at this facility are performed using low dose modulation techniques as appropriate to perform exam including the following: automated exposure control; use of iterative reconstruction technique; adjustment of the mA and/or kV according to patient size (this includes techniques or standardized protocols for targeted exams where dose is matched to indication/reason for exam). Reviewed, dictated and finalized at location S. IMPRESSION: Stable pulmonary nodules as above. Follow-up CT in 6 months is recommended to e nsure stability. All CT scans at this facility are performed using low dose modulation techniqu es as appropriate to perform exam including the following: automated exposure c ontrol; use of iterative reconstruction technique; adjustment of the mA and/or kV according to patient size (this includes techniques or standardized protocol s for targeted exams where dose is matched to indication/reason for exam).
--- OUTSIDE RECORDS SUMMARY | 2025-04-30 11:04 | XMS_ITS | Patient Health Record ---
Author Organization [facility] Address [address] [place], [place] [id number] Care Team Providers Care Proof Load Mechanic Name Role Phone ASHLEE MARTINEZ Unavailable [phone] CaitlinAshlee Unavailable Unavailable ASHLEE TIRADO Unavailable [phone] Allergies Allergen (clinical drug ingredient) Drug/Non Drug [...] End Date Status Clotrimazole-Betamet hasone 1-0.05 % Cream 1 application [...] Status : Never used tobacco Vital Signs Height-cm 157.48 cm 10/23/2024 Weight-kg 57.61 kg 10/23/2024 Height 62.00 in 10/23/2024 Weight 127 lbs 10/23/2024 BMI 23.23 kg/m2 10/23/2024 Encounters Encounter Location Date Provider Diagnosis [facility] [address] [place], [place] [id number] 10/23/2024 ASHLEE TIRADO Pain in right toe(s) M79.674 and Contusion of right great toe without damage to nail, subsequent encounter S90.111D [facility] [address] [place], [place] [id number] 10/16/2024 ASHLEE TIRADO Contusion of right great toe without damage to nail, initial encounter S90.111A and Pain in right toe(s) M79.674 Assessments Encounter Date Diagnosis (ICD Code) Assessment [...] Insured Coverage Start Date Coverage End Date [facility] [address] [address] [place] [address] [id number] LEWIS SAMUELS Self - patient is the insured
--- OUTSIDE RECORDS SUMMARY | 2025-04-30 11:04 | XMS_ITS | Patient Health Record ---
Author Organization [facility] Address [address] [place] [address] Support Name Relationship Address Phone Eden Mccray Guarantor Unknown [phone] Reason For Referral No Information Problems Problem Type SNOMED Code ICD Code Onset Dates Problem Status W/U Status Risk Notes Problem Non-neoplasti c nevus ([id number]) Nevus, non-neoplas tic (I78.1) Active confirmed Plan Of Treatment No Information Insurance Providers Payer Name Payer Address Payer Phone Subscriber Number Group Number Insured Name Patient Relationship to Insured Coverage Start Date Coverage End Date [facility] [address] [place] [address] [id number] Eden Mccray Self - patient is the insured 4
--- OUTSIDE RECORDS SUMMARY | 2025-04-30 11:04 | XMS_ITS | Clinical Summary ---
Author Organization [facility] Address [address] [place] [address] Care Team Providers Care Charge Nurse Name Role Phone Unavailable Primary Care Provider [...] - 1-dose 75+ series) 2015 COVID-19 Vaccine (2024-2 6 season) 2025 Influenza Adult (#1) 2025 Hepatitis A Vaccines Aged Out No long er eligible based on patient's age to complete this topic Meningococcal B Vaccine Aged Out No l onger eligible based on patient's age to complete this topic Meningococcal Vaccine Aged Out No bre an eligible based on patient's age to complete this topic RSV Immunizations Under 20 Months Aged Out No longer eligible based on patient's age to complete this topic
== END 2025-04-30 10:04 | disposition home or self-care (01) ==
PROVIDERS: PCP Family Medicine; Visit Provider Family Medicine
DX: R91.8 Other nonspecific abnormal finding of lung field (principal)
CPT/HCPCS: 71250